=== PATIENT | female | born 1995 | race Caucasian/White ===

== ENCOUNTER 2020-03-20 21:38 | Emergency (ER) | payer OTHER, SELFPAY ==
[2020-03-20 23:59] VITALS: BP 122/74; PULSE 145; RESP 18; TEMP 39.4; O2SAT 97
[2020-03-21 01:39] VITALS: BP 150/73; PULSE 126; RESP 18; TEMP 38; O2SAT 97; BMI 34.3
[2020-03-21 02:23] VITALS: BP 111/70; PULSE 126; RESP 18; TEMP 37.6; O2SAT 96; BMI 34.3
--- NOTE | 2020-03-21 02:54 | ED_ITS ---
HPI - General Adult General Chief complaint: General Medical Stated complaint: covid like symptoms Time Seen by Provider: 03/21/20 02:35 Source: patient Mode of arrival: ambulatory History of Present Illness HPI narrative: This is a 25-year-old female who presents with few days of worsening body aches, sore throat, chills, but denies any GI symptoms or symptoms. Related Data Allergies Allergy/AdvReac Type Severity Reaction Status Date / Time No Known Allergies Allergy Verified 03/21/20 02:22 Review of Systems Review of Systems: Pertinent positives and negatives as stated in HPI 10 point review of systems is otherwise negative. PMFSH Past Medical History Source: nursing notes reviewed Medical History Asthma Social History Social History Advance Directives: No Advance Directives Information Provided: No Physical Exam Vital Signs: Vital Signs: Last Vital Signs Temp 99.6 F 03/21/20 02:23 Pulse 126 H 03/21/20 02:23 Resp 18 03/21/20 02:23 BP 111/70 03/21/20 02:23 Pulse Ox 96 03/21/20 02:23 Body Mass Index 34.3 VITAL SIGNS: Reviewed. GENERAL: Well developed, well nourished, in no acute distress. HEAD: Normocephalic/atraumatic, EYES: PERRLA, EOMI intact without pain EARS: Ext canals without abnormality, TMs non-bulging and non-erythematous NOSE: Nares patent bilateral OROPHARYNX: no oral lesions noted, posterior pharynx clear and non-erythematous without noted tonsillar enlargement/erythema/exudates NECK: Supple, no adenopathy LUNGS: Normal breath sounds. No adventitious sounds or accessory muscle use. SpO2<96> CARDIOVASCULAR: Regular rate and rhythm without noted murmurs, no JVD or lower extremity edema. ABDOMEN: Soft, non-tender, non-distended with bowel sounds. No rigidity. No guarding. No palpable masses or hernias noted NEUROLOGIC: Alert and oriented x 4. Course Course Course Narrative: This is a 25-year-old female with history and clinical presentation consistent with positive COVID exposure from her brother just prior to and now presenting with viral symptoms and given temperature as well as tachycardia suspect that patient in fact has COVID-19 which was confirmed by testing. Patient was informed of all results and discharged with instructions to self quarantine as per [place] state guidelines. Patient is neither hypoxic or tachypneic. Medical Decision Making Lab Data Labs: Lab Results 03/21/20 Range/Units 03:18 Coronavirus (PCR) POSITIVE A (Negative) Influenza Type A (PCR) NEGATIVE (Negative) Influenza Type B (PCR) NEGATIVE (Negative) RSV RNA Qual (PCR) NEGATIVE (Negative) Discharge Plan Discharge Clinical Impression: Close exposure to COVID-19 virus, Lab test positive for detection of COVID-19 virus Patient Disposition: Home, Self-Care Instructions: COVID-19 (Coronavirus Disease 2019) (ED) Additional Instructions: 1. Tylenol 1000 mg, orally, every 6 hours as needed for temperatures greater than 100.4, body aches, headaches. Do not exceed 4000 mg within 24 hours. 2. Ibuprofen 400 mg, orally with milk or food, every 6 hours as needed for temperatures greater than 100.4, body aches, headaches. You may take this in combination with the Tylenol for increased affect. 3. Continue stay well hydrated with water. 4. You must self quarantine as per state [facility] guidelines for COVID- 19 positive testing. Please does not hesitate to return to the emergency department if you develop significant worsening of shortness of breath. Referrals: Physician,Unknown [Primary Care Provider] - 2 days
[2020-03-21] MEDS: Acetaminophen 325 MG TABLET 975 MG PO (03:19)
[2020-03-21 04:07] LABS: Influenza A PCR NEGATIVE (Negative); Influenza B PCR NEGATIVE (Negative); Resp Syncy Virus RNA Qual PCR NEGATIVE (Negative)
[2020-03-21 04:11] LABS: SARS COV2 PCR INHOUSE POSITIVE (Negative)
[2020-03-21 04:25] VITALS: BP 112/59; PULSE 116; RESP 16; TEMP 37.4; O2SAT 97
== END 2020-03-21 04:44 | disposition home or self-care (01) ==
PROVIDERS: Emergency Provider Student in an Organized Health Care Education/Training Program
DX: U07.1 COVID-19 (principal); J45.909 Unspecified asthma, uncomplicated
CPT/HCPCS: 0241U; 36415; 99283

== ENCOUNTER 2021-12-03 21:56 | Emergency (ER) | payer OTHER, SELFPAY ==
--- NOTE | ~2021-12-03 | XR_ITS ---
EXAMINATION: XR CHEST CLINICAL INFORMATION: Shortness of breath COMPARISON: None TECHNIQUE: Frontal view of the chest was obtained. FINDINGS: No significant abnormality is noted involving the heart, lungs, mediastinum, bony thorax or soft tissues. XR/XR chest 1V IMPRESSION: Unremarkable examination.
--- NOTE | 2021-12-03 07:17 | ECG_ITS ---
Test Reason : SHORTNESS OF BREATH Blood Pressure : / mmHG Vent. Rate : 111 BPM Atrial Rate : 111 BPM P-R Int : 112 ms QRS Dur : 080 ms QT Int : 328 ms P-R-T Axes : 032 013 010 degrees QTc Int : 446 ms Sinus tachycardia Otherwise normal ECG No previous ECGs available Referred By: Valerie Adrian Electronically Signed By:KAILEY CORDERO
[2021-12-03 23:04] LABS: MANUAL DIFF FLAG NO
[2021-12-03 23:06] LABS: Basophils Percent Auto 0.3 % (0-2); Eosinophils Absolute Auto 0.1 X10*3/uL (0.0-0.4); Eosinophils Percent Auto 0.9 % (0-4); Hematocrit 39.8 % (37.0-47.0); Hemoglobin 13.4 g/dl (12.0-16.0); Imm Gran Abs Auto 0.07 X10*3/uL (0.00-0.03); Imm Gran Pct Auto 0.7 % (0.0-0.4); Lymphocytes Absolute Auto 3.7 X10*3/uL (1.2-4.9); Lymphocytes Percent Auto 36.9 % (20-40); Mean Corpuscular HGB Conc 33.7 g/dl (31.0-35.0); Mean Corpuscular Volume 83.1 fL (80.0-98.0); Mean Platelet Volume 9.1 fL (9.4-12.3); Monocytes Absolute Auto 0.4 X10*3/uL (0.1-1.2); Monocytes Percent Auto 4.1 % (2-11); Neutrophils Absolute Auto 5.8 x10*3/uL (2.0-8.3); Neutrophils Percent Auto 57.1 % (45-73); Platelet Count 246 X10*3/uL (160-400); Red Blood Count 4.79 X10*6/uL (4.20-5.50); Red Cell Distribution Width 12.6 % (11.0-16.0); White Blood Count 10.1 X10*3/uL (4.8-10.8)
[2021-12-03 23:14] LABS: COVID-19 Test Positive (Negative)
[2021-12-03 23:15] VITALS: BP 164/94; PULSE 107; RESP 18; TEMP 37.7; O2SAT 98; BMI 36.7
[2021-12-03 23:20] LABS: Anion Gap 16 (12-20); Blood Urea Nitrogen 16 mg/dL (9-16); Calcium 8.7 mg/dL (8.4-10.2); Carbon Dioxide 23 mmol/L (22-29); Chloride 105 mmol/L (96-108); Estimated Glomerular Filt Rate > 60; Glucose Random 98 mg/dL (60-115); Potassium 3.8 mmol/L (3.3-5.1); Sodium 140 mmol/L (135-145)
--- NOTE | 2021-12-04 01:18 | ED_ITS ---
HPI - General Adult General Chief complaint: General Medical Stated complaint: covid + ,sob,asthma Time Seen by Provider: 12/03/21 22:42 History of Present Illness HPI narrative: Patient is a 26-year-old female presents today with coughing upper respiratory symptoms ongoing for at least 1 week. Tested positive for COVID about a week ago. Continued to have coughing upper respiratory symptoms but no fever the current time. Patient is vaccinated, has a history of asthma but never been intubated. No GI symptoms. Related Data Allergies Allergy/AdvReac Type Severity Reaction Status Date / Time No Known Allergies Allergy Verified 03/21/20 02:22 Review of Systems Review of Systems: No fever no chills . Positive coughing upper respiratory symptoms Yes all other systems are reviewed and are negative [facility] Past Medical History Attestation statement: The following information was validated with the patient. Medical History Asthma Social History Social History Advance Directives: No Physical Exam ED Vital Signs: Vital Signs - 24 hr 12/03/21 23:15 Temperature 99.9 F Pulse Rate 107 H Respiratory Rate 18 Blood Pressure 164/94 H Pulse Oximetry 98 Oxygen Delivery Method Room Air BMI result Body Mass Index 36.7 Appearance: Alert. Oriented X3. No acute distress. Eyes: Pupils equal, round and reactive to light. ENT: Pharynx normal. Neck: Normal inspection. Neck supple. No lymph nodes noted. No crepitus CVS: Normal heart rate and rhythm. Pulses normal. Normal S1 and S2 Respiratory: No respiratory distress. Breath sounds normal. No Wheezing. No rales Abdomen: Soft and nontender. No rigidity. No distention. good BS x4 Skin: Skin warm and dry. Normal skin color. Normal skin turgor. Extremities: No lower extremity edema. Neurovascular intact to all extremities. No Lacerations. No Rash Neuro: Oriented X 3. No motor deficit. No sensory deficit. Moving all extermities. No slurred speech Medical Decision Making MDM Narrative Medical decision making narrative: Well-appearing no distress. O2 sat 90% on room air. Symptom greater than 1 week. Will discharge patient home Lab Data Result diagrams: 12/03/21 22:58 09/21/22 22:58 Labs: Lab Results 12/03/21 12/03/21 12/03/21 Range/Units 22:58 22:58 22:58 WBC 10.1 (4.8-10.8) X10*3/uL RBC 4.79 (4.20-5.50) X10*6/uL Hgb 13.4 (12.0-16.0) g/dl Hct 39.8 (37.0-47.0) % MCV 83.1 (80.0-98.0) fL MCH 28.0 (27.0-33.0) pg MCHC 33.7 (31.0-35.0) g/dl RDW 12.6 (11.0-16.0) % Plt Count 246 (160-400) X10*3/uL MPV 9.1 L (9.4-12.3) fL Immature Gran % (Auto) 0.7 H (0.0-0.4) % Neut % (Auto) 57.1 (45-73) % Lymph % (Auto) 36.9 (20-40) % [place] % (Auto) 4.1 (2-11) % Eos % (Auto) 0.9 (0-4) % Baso % (Auto) 0.3 (0-2) % Lymph # (Auto) 3.7 (1.2-4.9) X10*3/uL [place] # (Auto) 0.4 (0.1-1.2) X10*3/uL Eos # (Auto) 0.1 (0.0-0.4) X10*3/uL Baso # (Auto) 0.0 (0.0-0.2) X10*3/uL Abs Immat Gran (auto) 0.07 H (0.00-0.03) X10*3/uL Absolute Neuts (auto) 5.8 (2.0-8.3) x10*3/uL Absolute Nucleated RBC 0.000 (0.0-0.012) X10*3/uL Nucleated RBC % (auto) 0.0 (0.0-0.2) /100WBC Sodium 140 (135-145) mmol/L Potassium 3.8 (3.3-5.1) mmol/L Chloride 105 (96-108) mmol/L Carbon Dioxide 23 (22-29) mmol/L Anion Gap 16 (12-20) BUN 16 (9-16) mg/dL Creatinine 0.88 (0.5-1.4) mg/dL Estim Creat Clear Calc TNP Estimated GFR > 60 Random Glucose 98 (60-115) mg/dL Calcium 8.7 (8.4-10.2) mg/dL COVID-19 (RED) Positive A (Negative) COVID-19 Clin Com See Note Discharge Plan Discharge Clinical Impression: COVID-19 Patient Disposition: Home, Self-Care Instructions: COVID-19 (Coronavirus Disease 2019) (ED) Referrals: Physician,Unknown J [Primary Care Provider] - Stand Alone Forms: Work/School Release
[2021-12-04 01:21] VITALS: BP 112/74; PULSE 93; RESP 18; TEMP 36.7; O2SAT 99
--- NOTE | 2021-12-04 01:43 | PC.NURSE ---
Reviewed discharge instructions and pt verbalized understanding
== END 2021-12-04 01:44 | disposition home or self-care (01) ==
PROVIDERS: Emergency Medicine; Emergency Provider Emergency Medicine Emergency Medical Services
DX: U07.1 COVID-19 (principal); R06.02 Shortness of breath; Z79.899 Other long term (current) drug therapy
CPT/HCPCS: 71045; 80048; 85025; 87635; 93005; 99283

== ENCOUNTER 2022-10-21 06:31 | Emergency (ER) | payer OTHER, SELFPAY ==
--- NOTE | ~2022-10-21 | CT_ITS ---
EXAMINATION: CT ABDOMEN AND PELVIS WITH CONTRAST CLINICAL INFORMATION: Right flank pain radiating to the right lower quadrant. COMPARISON: None available. TECHNIQUE: Multidetector volumetric images were obtained from the superior aspect of the liver through the pubic symphysis following administration 85 mL of Omnipaque 350 intravenous contrast. Sagittal and coronal reformatted images were obtained on the technologist's workstation. Oral contrast: No This CT examination was performed using dose optimization techniques as appropriate, variously including the following: *Automated exposure control *Adjustment of mA and/or kV according to patient size (this includes techniques or standardized protocols for targeted exams where dose is matched to indication/reason for exam; i.e. extremities or head) *Use of iterative reconstruction technique DLP: 645 mGy-cm FINDINGS: LUNG BASES: The visualized lung bases are unremarkable. LIVER, GALLBLADDER, AND BILIARY TREE: Mild diffuse decreased hepatic attenuation without focal abnormality. No gallbladder/biliary abnormality. PANCREAS: Unremarkable. SPLEEN: Unremarkable. ADRENAL GLANDS: Unremarkable. KIDNEYS AND URETERS: The kidneys are normal in size, shape, and attenuation. No hydronephrosis, hydroureter, or calculi seen. No perinephric stranding. BLADDER: Unremarkable. GASTROINTESTINAL TRACT: Small hiatal hernia. The remainder of the stomach is unremarkable. ABDOMINAL WALL: No significant hernia is appreciated. LYMPH NODES: Mildly prominent perisplenic nodes. A renewals representative measures 0.9 cm in short axis densities image 25, series 3). VASCULAR: Unremarkable. PELVIC VISCERA: Unremarkable. OSSEOUS STRUCTURES: Unremarkable. CT/CT abdomen pelvis w IV con IMPRESSION: 1. No acute intra-abdominal/pelvic abnormality to explain the patient's pain. No nephrolithiasis or hydroureteronephrosis. 2. Mild hepatic steatosis. 3. Small hiatal hernia. 4. Mildly enlarged perisplenic lymph nodes are nonspecific. These are not pathologically enlarged and may be reactive to an unknown source. The spleen is at the upper limits of normal in size without other associated abnormality.
[2022-10-21 06:42] VITALS: BP 142/92; PULSE 94; RESP 18; TEMP 36.9; O2SAT 98; BMI 38.7
[2022-10-21 06:53] LABS: Hemoglobin 13.3 g/dl (12.0-16.0); Mean Corpuscular HGB Conc 32.4 g/dl (31.0-35.0); Mean Corpuscular Hemoglobin 26.9 pg (27.0-33.0); Red Blood Count 4.94 X10*6/uL (4.20-5.50); Red Cell Distribution Width 13.5 % (11.0-16.0); White Blood Count 7.4 X10*3/uL (4.8-10.8)
[2022-10-21 07:08] LABS: Alanine Aminotransferase 37 U/L (0-31); Albumin Level 4.1 g/dL (3.5-5.0); Alkaline Phosphatase 68 U/L (39-117); Anion Gap 10 (12-20); Aspartate Amino Transferase 26 U/L (5-31); Bilirubin Total 0.3 mg/dL (0.0-1.0); Blood Urea Nitrogen 9 mg/dL (9-16); Calcium 9.1 mg/dL (8.4-10.2); Carbon Dioxide 25 mmol/L (22-29); Chloride 107 mmol/L (96-108); Creatinine Clr Calc Pharmacy 121.2; Estimated Glomerular Filt Rate > 60; Glucose Random 102 mg/dL (60-115); Lipase 29 U/L (8-78); Potassium 4.4 mmol/L (3.3-5.1); Sodium 138 mmol/L (135-145); Total Protein 8.4 g/dL (6.5-8.0)
[2022-10-21 07:19] LABS: Mean Platelet Volume 12.5 fL (9.4-12.3); Platelet Count 81 X10*3/uL (160-400)
--- OUTSIDE RECORDS SUMMARY | 2022-10-21 07:20 | XMS_ITS | Continuity of Care Document ---
Author Name Unknown Organization [facility] Adult Address [address] [place] [address]- Care Team Providers Care Merchandising Team Lead Name Role Phone Chris PROCTOR, Catia Primary Care Physician [facility] Date(s): 05/26/21 - 06/25/21 [facility] Adult [address] [place] [address]- Allergies, Adverse Reactions, Alerts No Known Allergies Immunizations Given and Recorded Vaccine Date Status Refusal Reason influenza virus vaccine, inactivated 1 02/06/20 Gi merlyn influenza virus vaccine, inactivated 2 01/20/19 Gi merlyn tetanus/diphtheria/pertussis, acel(Tdap) 3 01/20/19 Given tetanus/diphtheria/pertussis, acel(Tdap) 09/28/08 Recorded Meningococcal Conjugate Vaccine 11/08/14 Recorded Meningococcal Conjugate Vaccine 09/28/08 Recorded Hepatitis A Pediatric Vaccine 11/01/13 Recorded Hepatitis A Pediatric Vaccine 10/09/10 Recorded Human Papillomavirus Vaccine 04/30/09 Recorded Human Papillomavirus Vaccine 12/12/08 Recorded Human Papillomavirus Vaccine 09/28/08 Recorded Varicella Virus Vaccine 09/20/07 Recorded Varicella Virus Vaccine 06/06/98 Recorded Poliovirus Vaccine, Inactivated 12/06/01 Recorded Poliovirus Vaccine, Inactivated 97 Recorded Poliovirus Vaccine, Inactivated 97 Recorded Poliovirus Vaccine, Inactivated 97 Recorded diphtheria/tetanus/pertussis, acel(DTaP) 12/06/01 Recorded diphtheria/tetanus/pertussis, acel(DTaP) 06/06/98 Recorded diphtheria/tetanus/pertussis, acel(DTaP) 97 Recorded diphtheria/tetanus/pertussis, acel(DTaP) 97 Recorded diphtheria/tetanus/pertussis, acel(DTaP) 97 Recorded Measles/Mumps/Rubella Virus Vaccine 06/06/98 Recor ded Measles/Mumps/Rubella Virus Vaccine 03/25/98 Recor ded Haemophilus B Conj Vaccine (oldterm) 06/06/98 Codey rded Haemophilus B Conj Vaccine (oldterm) 97 Codey rded Haemophilus B Conj Vaccine (oldterm) 97 Codey rded Haemophilus B Conj Vaccine (oldterm) 97 Codey rded hepatitis B pediatric vaccine 97 Recorded hepatitis B pediatric vaccine 97 Recorded hepatitis B pediatric vaccine 97 Recorded 1Result Comment: [facility]: [id number] 2Result Comment: [facility] 70464-903-52 3Result Comment: [facility] [id number] Medications Albuterol (Eqv-ProAir HFA) 90 mcg/inh inhalation aerosol 2 puffs, Inhalation, Every 6 hours, PRN Wheezing/Shortness of Breath, # 6.7 Gm, 0 Refills, Maintenance, 05/23/21 11:51:00 EST, [id number], Partial fill upon patient request if the prescription is for a schedule II opioid drug., 2 puffs Inhalat... Start Date: 05/23/21 Status: Ordered metroNIDAZOLE 0.75% topical gel 1 application, Topically, 2 times a day, # 45 Gm, 1 Refills, Maintenance, 05/23/21 11:50:00 EST, Gel, [id number], 1 application Topically 2 times a day, 150.6, cm, 05/23/21 11:21:00 EST, Height Start Date: 05/23/21 Status: Ordered Nexplanon 68 mg subcutaneous implant 1 each = 68 mg, Subcutaneous Infusion, Once, 0 Refills, Maintenance, 01/20/19 13:10:36 EST Start Date: 01/20/19 Status: Ordered Problem List Condition Effective Dates Status Health Status Inform ant Asthma(Confirmed) Active Depression(Confirmed) Active Obese class II(Confirmed) Active Rosacea(Confirmed) Active Social History Social History Type Response Smoking Status Never (less than 100 in lifetime) entered on: 01/20/19 Sex
--- OUTSIDE RECORDS SUMMARY | 2022-10-21 07:20 | XMS_ITS | Continuity of Care Document ---
Author Name Unknown Organization [facility] Adult Address [address] [place] [address]- Care Team Providers Care Presetter Operator Name Role Phone Catia Perez MD Primary Care Physician Encounter [facility] Date(s): 05/23/21 - 05/30/21 [facility] Adult [address] [place] [phone]- Encounter Diagnosis Well adult exam(Discharge Diagnosis) - 05/23/21 Obesity(Discharge Diagnosis) - 05/23/21 Asthma(Discharge Diagnosis) - 05/23/21 Depression(Discharge Diagnosis) - 05/23/21 Rosacea(Discharge Diagnosis) - 05/23/21 Diabetes mellitus screening(Discharge Diagnosis) - 05/23/21 Screening cholesterol level(Discharge Diagnosis) - 05/23/21 Attending Physician: Catia Perez MD Allergies, Adverse Reactions, Alerts No Known Allergies [...] B pediatric vaccine 97 Recorded 1Result Comment: [facility]: [id number] 2Result Comment: [facility] 50216-552-60 3Result Comment: [facility] [phone] Medications Albuterol (Eqv-ProAir HFA) 90 mcg/inh inhalation aerosol 2 puffs, Inhalation, Every 6 hours, PRN Wheezing/Shortness of Breath, # 6.7 Gm, 0 Refills, Maintenance, 05/23/21 11:51:00 EST, [facility]/pharmacy #[id number], Partial fill upon patient request if [...] Active Obese class II(Confirmed) Active Rosacea(Confirmed) Active Diagnosis Diagnosis Type Effective Dates Health Status Clinical Service Informant Well adult exam Discharge Diagnosis 05/23/21 Obesity Discharge Diagnosis 05/23/21 Asthma Discharge Diagnosis 05/23/21 Depression Discharge Diagnosis 05/23/21 Rosacea Discharge Diagnosis 05/23/21 Diabetes mellitus screening Discharge Diagnosis 05/23/21 Screening cholesterol level Discharge Diagnosis 05/23/21 Vital Signs Most recent to oldest [Reference Range]: 1 Height 150.6 cm (05/23/21 11:21 AM) Weight 85.9 kg (05/23/21 11:21 AM) Oxygen Saturation [94-100 %] 98 % (05/23/21 11:21 AM) Pulse Rate [55-90 bpm] 87 bpm (05/23/21 11:21 AM) Body Mass Index [18.5-24.99] 37.87 *>HHI* (05/23/21 11:21 AM) Blood Pressure [90-138/55-84 mm Hg] 110/ 66mm Hg (05/23/21 11:21 AM) Temperature [96.8-100.4 DegF] 98.4 DegF (05/23/21 11:21 AM) Mode of Delivery (Oxygen) Room air (05/23/21 11:21 AM) Blood pressure sites Arm, left (05/23/21 11:21 AM) Temperature Route Oral (05/23/21 11:21 AM) Social History Social History Type Response Smoking Status Never (less than 100 in lifetime) entered on: 01/20/19 Sex
--- OUTSIDE RECORDS SUMMARY | 2022-10-21 07:20 | XMS_ITS | Continuity of Care Document ---
Author Name Unknown Organization [facility] Adult Address [address] [place] [address]- Care Team Providers Care Pet Care Associate Name Role Phone Chris PROCTOR, Catia Primary Care Physician Encounter [facility] Date(s): 02/27/20 - 03/28/20 [facility] Adult [address] [place] [address]- Allergies, Adverse Reactions, Alerts Substance Reaction Severity Status NKA Active Immunizations Given and Recorded Vaccine Date Status [...] B pediatric vaccine 97 Recorded 1Result Comment: [facility]: [id number] 2Result Comment: [facility] 21201-992-71 3Result Comment: [facility] [id number] Medications metroNIDAZOLE 0.75% topical gel 1 application, Topically, 2 times a day, # 45 Gm, 1 Refills, Maintenance, 01/20/19 13:26:16 EST, Gel, 1 application Topically 2 times a day Start Date: 01/20/19 Status: Ordered Nexplanon 68 mg subcutaneous implant 1 each = 68 mg, Subcutaneous Infusion, Once, 0 Refills, Maintenance, 01/20/19 13:10:36 EST Start Date: 01/20/19 Status: Ordered Wellbutrin XL 150 mg/24 hours oral tablet, extended release 1 tablet = 150 mg, By Mouth, Every 24 hours, # 30 tablet, 1 Refills, Maintenance, 01/20/19 13:26:17EST, ER Tablet Start Date: 01/20/19 Status: Ordered Problem List Condition Effective Dates Status Health Status Inform ant Asthma(Confirmed) Active Rosacea(Confirmed) Active Social History Social History Type Response Smoking Status Never (less than 100 in lifetime) entered on: 01/20/19 Sex
--- OUTSIDE RECORDS SUMMARY | 2022-10-21 07:20 | XMS_ITS | Continuity of Care Document ---
Author Name Unknown Organization [facility] Adult Address [address] [place] [address]- Care Team Providers Care Restorative Aide Name Role Phone Kimberly VALADEZ, Bianca Primary Care Physician [facility] Date(s): 01/20/19 - 04/13/19 [facility] Adult [address] [place] [phone]- [facility] Attending Physician: Not on Staff, Attending MD Allergies, Adverse Reactions, Alerts Substance Reaction Severity Status NKA Active Immunizations Given and Recorded Vaccine Date Status Refusal Reason tetanus/diphtheria/pertussis, acel(Tdap) 1 01/20/19 Given tetanus/diphtheria/pertussis, acel(Tdap) 09/28/08 Recorded influenza virus vaccine, inactivated 2 01/20/19 Gi merlyn Meningococcal Conjugate Vaccine 11/08/14 Recorded Meningococcal Conjugate [...] B pediatric vaccine 97 Recorded 1Result Comment: [facility] [phone] 2Result Comment: [facility] [id number] Medications metroNIDAZOLE 0.75% topical gel 1 application, [...]
--- OUTSIDE RECORDS SUMMARY | 2022-10-21 07:20 | XMS_ITS | Continuity of Care Document ---
Author Name Unknown Organization [facility] Adult Address [address] [place] [address]- Care Team Providers Care Division Toll Wire Chief Name Role Phone Kimberly VALADEZ, Bianca Primary Care Physician Encounter [facility] Date(s): 03/14/19 - 03/24/19 [facility] Adult [address] [place] [address]- [facility] Attending Physician: Sim Perkins Admitting Physician: AdmSim rao Referring Physician: Admtr, ArNancy Allergies, Adverse Reactions, Alerts Substance Reaction Severity [...] Recorded 1Result Comment: [facility] [id number] 2Result Comment: [facility] 42771-450-28 Medications metroNIDAZOLE 0.75% topical gel 1 application, [...]
--- OUTSIDE RECORDS SUMMARY | 2022-10-21 07:20 | XMS_ITS | Continuity of Care Document ---
Author Name Unknown Organization [facility] Adult Address [address] [place] [address]- Care Team Providers Care Stock Turner Name Role Phone Chris PROCTOR, [place] Primary Care Physician [facility] Date(s): 06/19/22 - 07/19/22 [facility] Adult [address] [place] [id number] Allergies, Adverse Reactions, Alerts No Known Allergies Immunizations Given and Recorded Vaccine Date Status Refusal Reason influenza virus vaccine, inactivated 12/30/21 Codey rded influenza virus vaccine, inactivated 1 02/06/20 Gi merlyn influenza virus vaccine, inactivated 2 01/20/19 Gi merlyn influenza virus vaccine, inactivated 01/29/17 Codey rded influenza virus vaccine, inactivated 11/27/15 Codey rded influenza virus vaccine, inactivated 11/08/14 Codey rded SARS-CoV-2 (COVID-19) Ad26 vaccine 06/23/20 Given tetanus/diphtheria/pertussis, acel(Tdap) 3 01/20/19 Given tetanus/diphtheria/pertussis, acel(Tdap) [...] B pediatric vaccine 97 Recorded 1Result Comment: [facility]: 77144-554-94 2Result Comment: [facility] 53799-721-74 3Result Comment: [facility] [id number] Medications Albuterol (Eqv-ProAir HFA) 90 mcg/inh inhalation aerosol 2 puffs, Inhalation, Every 6 hours, PRN Wheezing/Shortness of Breath, # 6.7 Gm, 0 Refills, Maintenance, 05/23/21 11:51:00 EST, [facility]/pharmacy #[id number], Partial fill upon patient request if the prescription is for a schedule II opioid drug., 2 puffs Inhalat... Start Date: 05/23/21 Status: Ordered FLUoxetine (Eqv-Prozac) 20 mg oral tablet 1 tablet = 20 mg, By Mouth, Daily, # 30 tablet, 2 Refills, Maintenance, 06/10/22 8:54:00 EDT, Tablet, [id number], Partial fill upon patient request if the prescription is for a schedule II opioid drug., 150.6, cm, 06/10/22 8:10:00 EDT, Height Start Date: 06/10/22 Status: Ordered metroNIDAZOLE 0.75% topical gel 1 [...] Date: 01/20/19 Status: Ordered Problem List Condition Confirmation Course Effective Dates Status Health St [facility] Informant Asthma Confirmed Active Depression Confirmed Active Obese class II Confirmed Active Rosacea Confirmed Active Social History Social History Type Response Smoking Status Never (less than 100 in lifetime) entered on: 01/20/19 Sex Patient Care team information Care Team Personnel Name: Catia Perez MD Position: S Primary Care Physician Member Role: PCP [facility]: [facility] [address] [place] [address]- Care Team Related Persons Name: ALPHONSE BRIAN
--- OUTSIDE RECORDS SUMMARY | 2022-10-21 07:20 | XMS_ITS | Continuity of Care Document ---
Author Name Unknown Organization [facility] Adult Address [address] [place] [address]- Care Team Providers Care Belly Roller Name Role Phone Chris PROCTOR, Catia Primary Care Physician Encounter [facility] Date(s): 02/06/20 - 03/07/20 [facility] Adult [address] [place] [address]- Attending Physician: Sim Perkins Admitting Physician: AdmSim rao Referring Physician: AdmtrSim Allergies, Adverse Reactions, Alerts Substance Reaction Severity [...] rded Haemophilus B Conj Vaccine (oldterm) 97 Codye rded hepatitis B pediatric vaccine 97 Recorded hepatitis B pediatric vaccine 97 Recorded hepatitis B pediatric vaccine 97 Recorded 1Result Comment: [facility]: 11131-491-23 2Result Comment: [facility] [phone] 3Result Comment: [facility] 23963-382-85 Medications metroNIDAZOLE 0.75% topical gel 1 application, [...]
--- OUTSIDE RECORDS SUMMARY | 2022-10-21 07:20 | XMS_ITS | Continuity of Care Document ---
Author Name Unknown Organization [facility] Adult Address [address] [place] [address]- Care Team Providers Care Electric Well Logging Operator Name Role Phone Chris PROCTOR, [place] Primary Care Physician [facility] Date(s): 06/19/22 - 07/19/22 [facility] Adult [address] [place] [id number] Allergies, Adverse Reactions, Alerts No Known Allergies [...] B pediatric vaccine 97 Recorded 1Result Comment: [facility]: [id number] 2Result Comment: [facility] [phone] 3Result Comment: [facility] [id number] Medications Albuterol (Eqv-ProAir HFA) 90 mcg/inh inhalation aerosol 2 puffs, Inhalation, Every 6 hours, PRN Wheezing/Shortness of Breath, # 6.7 Gm, 0 Refills, Maintenance, 05/23/21 11:51:00 EST, [facility]/pharmacy #[id number], Partial fill upon patient request if [...] Care Physician Member Role: PCP [facility]: [facility] [place] [address]- Care Team Related Persons Name: ALPHONSE BRIAN
--- OUTSIDE RECORDS SUMMARY | 2022-10-21 07:21 | XMS_ITS | Continuity of Care Document ---
Author Name Unknown Organization [facility] Adult Address [address] [place] [address]- Care Team Providers Care Program Manager Slp Name Role Phone Chris PROCTOR, [place] Primary Care Physician [facility] Date(s): 07/13/22 - 08/12/22 [facility] Adult [address] [place], [place] [address] Allergies, Adverse Reactions, Alerts No Known [...] pediatric vaccine 97 Recorded 1Result Comment: [facility]: [phone] 2Result Comment: [facility] [phone] 3Result Comment: [facility] [id number] Medications Albuterol (Eqv-ProAir HFA) 90 mcg/inh inhalation aerosol 2 puffs, Inhalation, Every 6 hours, PRN Wheezing/Shortness of Breath, # 6.7 Gm, 0 Refills, Maintenance, 05/23/21 11:51:00 EST, [facility]/pharmacy #[id number], Partial fill upon patient request if [...] Personnel Name: Catia Perez MD Position: S Physician - Primary Care Member Role: PCP [facility]: [address] [place] [address]- Care Team Related Persons Name: ALPHONSE BRIAN
--- OUTSIDE RECORDS SUMMARY | 2022-10-21 07:21 | XMS_ITS | Continuity of Care Document ---
Author Name Unknown Organization [facility] Adult Address [address] [place] [address]- Care Team Providers Care Night Guard Name Role Phone Chris PROCTOR, Catia Primary Care Physician Encounter [facility] Date(s): 06/10/22 - 06/17/22 [facility] Adult [address] [place] [id number]- Encounter Diagnosis Well adult exam(Discharge Diagnosis) - 06/10/22 Depression(Discharge Diagnosis) - 06/10/22 Obese class II(Discharge Diagnosis) - 06/10/22 Rosacea(Discharge Diagnosis) - 06/10/22 Asthma(Discharge Diagnosis) - 06/10/22 Palpitations(Discharge Diagnosis) - 06/10/22 Hyperpigmented skin lesion(Discharge Diagnosis) - 06/10/22 Attending Physician: Chris PROCTOR, Catia Allergies, Adverse Reactions, Alerts No Known Allergies [...] B pediatric vaccine 97 Recorded 1Result Comment: [facility]: [id number] 2Result Comment: [facility] [id number] 3Result Comment: [facility] [id number] Medications Albuterol (Eqv-ProAir HFA) 90 mcg/inh inhalation aerosol 2 puffs, Inhalation, Every 6 hours, PRN Wheezing/Shortness of Breath, # 6.7 Gm, 0 Refills, Maintenance, 05/23/21 11:51:00 [facility], [facility]/pharmacy #[id number], Partial fill upon patient request if the prescription is for a schedule II opioid drug., 2 puffs Inhalat... Start Date: 05/23/21 Status: Ordered FLUoxetine (Eqv-Prozac) 20 mg oral tablet 1 tablet = 20 mg, By Mouth, Daily, # 30 tablet, 2 Refills, Maintenance, 06/10/22 8:54:00 EDT, Tablet, [facility]/pharmacy #[id number], Partial fill upon patient request if the prescription is for a schedule II opioid drug., 150.6, cm, 06/10/22 8:10:00 EDT, Height Start Date: 06/10/22 Status: Ordered metroNIDAZOLE 0.75% topical gel 1 application, Topically, 2 times a day, # 45 Gm, 1 Refills, Maintenance, 05/23/21 11:50:00 EST, Gel, [facility]/pharmacy #[id number], 1 application Topically 2 times a [...] class II Confirmed Active Rosacea Confirmed Active Diagnosis Diagnosis Type Effective Dates Health Status Clinical Service Informant Well adult exam Discharge Diagnosis 06/10/22 Depression Discharge Diagnosis 06/10/22 Obese class II Discharge Diagnosis 06/10/22 Rosacea Discharge Diagnosis 06/10/22 Asthma Discharge Diagnosis 06/10/22 Palpitations Discharge Diagnosis 06/10/22 Hyperpigmented skin lesion Discharge Diagnosis 06/10/22 Vital Signs Most recent to oldest [Reference Range]: 1 2 Height 150.6 cm (06/11/22 10:46 AM) 150.6 cm (06/10/22 8:10 AM) Weight 84.7 kg (06/11/22 10:46 AM) 84.7 kg (06/10/22 8:10 AM) Oxygen Saturation [94-100 %] 100 % (06/10/22 8:10 AM) Pulse Rate [55-90 bpm] 87 bpm (06/10/22 8:10 AM) Body Mass Index [18.5-24.99 kg/m2] 37.35 kg/m2 *>HHI* (06/10/22 8:10 AM) Blood Pressure [90-138/55-84 mm Hg] 126/ 86mm Hg (06/10/22 8:10 AM) Mode of Delivery (Oxygen) Room air (06/10/22 8:10 AM) Blood pressure sites Arm, right (06/10/22 8:10 AM) Weight Obtained Via Standing scale (06/10/22 8:10 AM) Social History Social History Type Response Smoking Status Never (less than 100 in lifetime) entered on: 01/20/19 Sex EKG study * Event Display: ECG 12-Lead Authored Date: Please click on pdf link to open report * Event Display: ECG 12-Lead Authored Date: Ventricular Rate: 93 BPM Atrial Rate: 93 BPM P-R Interval: 124 ms QRS Duration: 82 ms Q-T Interval: 354 ms QTC Calculation(Bazett): 440 ms P [place]: 27 degrees R [place]: 17 degrees T [place]: 33 degrees Normal sinus rhythm Normal ECG No previous ECGs available Confirmed by DONALD BERMUDEZ MD ([id number]) on 06/10/2022 4:11:36 PM [place]: DONALD BERMUDEZ MD Note * Zeinab Lincoln: PERFORM, SIGN, VERIFY Event Display: Patient Education/Instruction Authored Date: [id number] [facility] *[facility] [place] [facility] Clinical Summary Name JESSY TRACY Age 27 Years 1995 PCP Catia Perez MD PCP Visit Date 06/10/2022 08:08:00 Additional Instructions: Scheduled Appointments?? Future Appointments ?*Int??Behav??[facility] ?Phone:??--?Fax:??-- ?Appt. Date:??06/25/2022?11:00 AM ?Scheduled Provider:??Katherine Maier Follow-Up Instructions ?? With: Address: When: Catia Perez MD Within 3 months With: Address: When: Chris PROCTOR, Catia Within 1 year Diagnosis Depression, unspecified; Palpitations; Rosacea, unspecified; Encounter for general adult medical examination without abnormal findings; Disorder of pigmentation, unspecified; Unspecified asthma, uncomplicated; Body mass index [BMI] 35.0-35.9, adult Medications: Please continue your medications until treatment is completed or stopped by your provider. Discuss any questions related to medications with your provider. New Medications [facility]/pharmacy #[id number], [address], [place] [id number], [phone] Fluoxetine (FLUoxetine (Eqv-Prozac) 20 mg oral tablet) 1 tab(s) Oral Daily. Refills: 2. Next Dose: Medications to Continue with No Changes These medications were not printed or sent to your pharmacy Albuterol (Albuterol (Eqv-ProAir HFA) 90 mcg/inh inhalation aerosol) 2 puff(s) Inhalation every 6 hours as needed Wheezing/Shortness of Breath. Refills: 0. Next Dose: Etonogestrel (Nexplanon 68 mg subcutaneous implant) 1 Each Subcutaneous Infusion once. Next Dose: Metronidazole Topical (metroNIDAZOLE 0.75% topical gel) 1 eduar Topically twice a day. Refills: 1. Next Dose: Allergy Info:?? NKA Medications Given This Visit Future Orders ?TSH with T4 Reflex (Adults Only)? Order Date:06/10/22?- Complete on or after?06/10/22 ?Renal Panel? Order Date:06/10/22?- Complete on or after?06/10/22 ?CBC? Order Date:06/10/22?- Complete on or after?06/10/22 ?Holter Monitor 48 Hours? Order Date:06/10/22?- Complete on or after?06/10/22 Vital Signs Height 150.6 cm Weight 84.7 kg BMI 37.35 kg/m2 Blood Pressure 126 mm Hg/86 mm Hg Temperature Pulse Rate 87 bpm Respiratory Rate 02 Sat Mode of Delivery 100 %/Room air You can now view a summary of your hospital visit from the comfort of your home through a free online portal called [employer]. [employer] is a website that allows you to securely view your medical information including discharge summary, medications and follow-up visits. ??You can alsosend a secure electronic message to your doctor???s office to request appointments, renew medications or just ask a question. You can enroll at [email or web address] or register during your next office visit. Disclaimer:?? The information provided is of a general nature and is intended to be used in conjunction with the recommendations and advice of your health care practitioner. ??Every effort has been made to ensure that the information provided is accurate and complete at the time it is provided to you however, as your needs change, or, as new ??information becomes available, different or additional instructions may be required. If you have questions, please consult with your primary care provider or pharmacist, as appropriate. ??This information is not intended to serve as substitution for assessment and evaluation by a qualified health care provider. If you do not have a primary care provider, you may find a [facility] provider by calling [facility] at [phone]. For information about the plan of care including goals and instructions for your diagnosis, please see the patient education orders section of this document. Patient Education Materials?? The content of this educational material or handout may have been modified, supplemented, or adapted from its original content and format to support your individualized medical care. Patient Care team information Care Team Personnel Name: Catia Perez MD Position: [facility] Primary Care Physician Member Role: PCP Address: Address: [address] [place] [id number]- Care Team Related Persons Name: ALPHONSE BRIAN
--- OUTSIDE RECORDS SUMMARY | 2022-10-21 07:21 | XMS_ITS | Continuity of Care Document ---
Author Name Unknown Organization [facility] Adult Address [address] [place] [address]- Care Team Providers Care Pyrometer Mechanic Name Role Phone Chris PROCTOR, [place] Primary Care Physician Encounter [facility] Date(s): 06/19/22 - 07/19/22 [facility] Adult [address] [place] [id number] Allergies, Adverse Reactions, Alerts No Known [...] B pediatric vaccine 97 Recorded 1Result Comment: [facility]: [id number] 2Result Comment: [facility] [id number] 3Result Comment: [facility] [id number] Medications Albuterol (Eqv-ProAir HFA) 90 mcg/inh inhalation aerosol 2 puffs, Inhalation, Every 6 hours, PRN Wheezing/Shortness of Breath, # 6.7 Gm, 0 Refills, Maintenance, 05/23/21 11:51:00 EST, [facility]/pharmacy #[id number], Partial fill upon patient [...] Care Physician Member Role: PCP Address: [address] [place] [address]- Care Team Related Persons Name: ALPHONSE BRIAN
--- NOTE | 2022-10-21 07:25 | ED.ABDPAIN ---
HPI - Abdominal Pain General Chief Complaint: Abdominal Pain Stated Complaint: lower back/right sided pain Time Seen by Provider: 10/21/22 07:25 Source: patient, RN notes reviewed and old records reviewed Mode of arrival: ambulatory History of Present Illness HPI narrative: 37-year-old female with a past medical history of asthma presenting to ED complaining of right flank pain radiating to right lower quadrant since yesterday. Admits pain is constant with associated nausea. Denies fever/chills, vomiting, diarrhea, dysuria/hematuria, vaginal bleeding/discharge. MD elicited complaint: abdominal pain and flank pain Related Data Allergies Allergy/AdvReac Type Severity Reaction Status Date / Time No Known Allergies Allergy Verified 03/21/20 02:22 Review of Systems Review of Systems Constitutional: No Fever, No Chills, No Fatigue, No Malaise ENT/Mouth: No Hearing loss, No Ear Pain, No Nasal Congestion, No sore throat, No Rhinorrhea, No Swallowing Difficulty Eyes: No Eye Pain, No Swelling, No Vision Changes Cardiovascular: No Chest Pain, No SOB, No Edema, No Palpitations Respiratory: No Cough, No Sputum, No Wheezing, No Smoke Exposure, No Dyspnea Gastrointestinal: +Nausea, No Vomiting, No Diarrhea, No Constipation, + Abdominal pain Genitourinary: No irregular bleeding, No Dysuria, No Urinary Frequency, No Hematuria, No Urinary Incontinence/retention, No Urgency, + Flank Pain Musculoskeletal: No joint pain, No Myalgias, No Joint Swelling Skin: No Skin Lesions, No rash Neuro: No Weakness, No Headache Yes all other systems are reviewed and are negative Constitutional: Reports as per [facility] Past Medical History Attestation statement: The following information was validated with the patient. Source: old records reviewed Medical History Asthma Social History Social History Alcohol intake: never Smoked in Last 30 Days: No Use of substances other than those prescribed or required for medical reasons: No Advance Directives: No Advance Directives Information Provided: No Physical Exam ED Vital Signs: Vital Signs - 24 hr 10/21/22 06:42 10/21/22 07:32 Temperature 98.5 F 98.8 F Pulse Rate 94 104 H Respiratory Rate 18 18 Blood Pressure 142/92 H 130/83 Pulse Oximetry 98 97 Oxygen Delivery Method Room Air Room Air BMI result Body Mass Index 38.7 Const General: cooperative, healthy appearing and no acute distress Orientation/consciousness: patient oriented x3 Limitations: no limitations HENMT Head: Yes normal to inspection and Yes atraumatic Ears: hearing grossly normal bilaterally General nose exam: Normal external nose present Face and sinus: Yes normal facial exam Eyes General: appearance normal, both eyes and all related structures EOM: EOMs intact bilaterally Neck Neck: Yes normal visual inspection and Yes no meningeal signs Resp Effort & Inspection: normal respiratory effort and no respiratory distress Auscultation: clear to auscultation bilaterally Cardio Rate: regular rate Heart sounds: S1 normal heart sound present and S2 normal heart sound present GI Inspection: Yes normal to inspection Palpation (GI): Soft to palpation, Tenderness to palpation present (GI) in the RLQ and suprapubicly; with no rebound tenderness, no guarding and not rigid General: Yes no CVA tenderness Back/Spine/Pelvis Back: no CVA tenderness Skin Rashes: no rashes Wounds: no wounds Neuro General: patient oriented x3, tone normal and no meningeal signs Gait exam (Neuro): Normal gait present Extrem General: Yes normal to inspection Course Course Course Narrative: -0938--no leukocytosis. HH stable. Platelets 81 > decreased from priors. Labs otherwise reassuring -UA and negative CT abdomen pelvis w IV con IMPRESSION: 1.? No acute intra-abdominal/pelvic abnormality to explain the patient's pain. No nephrolithiasis or hydroureteronephrosis. 2.? Mild hepatic steatosis. 3.? Small hiatal hernia. 4.? Mildly enlarged perisplenic lymph nodes are nonspecific. These are not pathologically enlarged and may be reactive to an unknown source. The spleen is at the upper limits of normal in size without other associated abnormality. > viral testing including Monospot added. -Monospot, COVID and influenza negative. Rapid strep negative Results discussed with patient including worrisome signs and symptoms and strict return precautions, and when to return to the emergency department. They verbalized understanding and feel safe for discharge at this time. Medical Decision Making Medical Decision Making MDM Narrative: 37-year-old female with a past medical history of asthma presenting to ED complaining of right flank pain radiating to right lower quadrant since yesterday. On exam vital signs stable, NAD, nontoxic appearing, abdomen soft with RLQ/suprapubic tenderness, no rebound or guarding, no CVAT. Concern for renal stone/pyelo vs appendicitis. Rule out UTI. Lower suspicion for cholecystitis/sizes, pancreatitis diverticulitis or ovarian torsion/cyst at this time plan: Labs, UA, , CT AP, IVF, pain control Please refer to course for remaining clinical decision making, interpretation of labs/imaging results, and discussions with consultants and/or family members. Differential Diagnosis Differential Diagnoses: The differential diagnosis associated with the presentation includes As above Admission/Observation Consideration of admission/observation: Escalation of care including admission/observation considered Lab Data MDM Lab Attestation statement: I reviewed the patient's lab results. 10/21/22 06:47 10/21/22 06:47 Labs: Lab Results 10/21/22 10/21/22 10/21/22 Range/Units 06:47 06:47 07:24 WBC 7.4 (4.8-10.8) X10*3/uL RBC 4.94 (4.20-5.50) X10*6/uL Hgb 13.3 (12.0-16.0) g/dl Hct 41.0 (37.0-47.0) % MCV 83.0 (80.0-98.0) fL MCH 26.9 L (27.0-33.0) pg MCHC 32.4 (31.0-35.0) g/dl RDW 13.5 (11.0-16.0) % Plt Count 81 L D (160-400) X10*3/uL MPV 12.5 H (9.4-12.3) fL Absolute Nucleated RBC 0.000 (0.0-0.012) X10*3/uL Nucleated RBC % (auto) 0.0 (0.0-0.2) /100WBC Sodium 138 (135-145) mmol/L Potassium 4.4 (3.3-5.1) mmol/L Chloride 107 (96-108) mmol/L Carbon Dioxide 25 (22-29) mmol/L Anion Gap 10 L (12-20) BUN 9 (9-16) mg/dL Creatinine 0.68 (0.5-1.4) mg/dL Estim Creat Clear Calc 121.2 Estimated GFR > 60 Random Glucose 102 (60-115) mg/dL Calcium 9.1 (8.4-10.2) mg/dL Magnesium 2.2 (1.6-2.6) mg/dL Total Bilirubin 0.3 (0.0-1.0) mg/dL AST 26 (5-31) U/L ALT 37 H (0-31) U/L Alkaline Phosphatase 68 (39-117) U/L Total Protein 8.4 H (6.5-8.0) g/dL Albumin 4.1 (3.5-5.0) g/dL Lipase 29 (8-78) U/L Urine Color Straw Urine Appearance Clear Urine pH 7.0 (5.0-9.0) Ur Specific [place] <= 1.005 (1.005-1.025) Urine Protein Negative (Neg-Trace) mg/dL Urine Glucose (UA) Negative (Negative) mg/dL Urine Ketones Negative (Negative) mg/dL Urine Blood Trace (Negative) Urine Nitrite Negative (Negative) Ur Leukocyte Esterase Negative (Negative) Urine RBC 0-2 (0-2) /HPF Urine WBC 0-5 (0-5) /HPF Ur Squamous Epith Cells 0-2 (0-2) /HPF Urine Bacteria Trace (None Seen) Hyaline Casts 0-2 (0-2) /LPF Urine Test (NEGATIVE) COVID-19 (RED) (Negative) COVID-19 Clin Com Monoscreen (Negative) Influenza Type A (PHILIPPE) (Negative) Influenza Type B (PHILIPPE) (Negative) Influenza A & B Note S. pyogenes GrpA PHILIPPE (Negative) 10/21/22 10/21/22 10/21/22 Range/Units 07:24 09:49 09:49 WBC (4.8-10.8) X10*3/uL RBC (4.20-5.50) X10*6/uL Hgb (12.0-16.0) g/dl Hct (37.0-47.0) % MCV (80.0-98.0) fL MCH (27.0-33.0) pg MCHC (31.0-35.0) g/dl RDW (11.0-16.0) % Plt Count (160-400) X10*3/uL MPV (9.4-12.3) fL Absolute Nucleated RBC (0.0-0.012) X10*3/uL Nucleated RBC % (auto) (0.0-0.2) /100WBC Sodium (135-145) mmol/L Potassium (3.3-5.1) mmol/L Chloride (96-108) mmol/L Carbon Dioxide (22-29) mmol/L Anion Gap (12-20) BUN (9-16) mg/dL Creatinine (0.5-1.4) mg/dL Estim Creat Clear Calc Estimated GFR Random Glucose (60-115) mg/dL Calcium (8.4-10.2) mg/dL Magnesium (1.6-2.6) mg/dL Total Bilirubin (0.0-1.0) mg/dL AST (5-31) U/L ALT (0-31) U/L Alkaline Phosphatase (39-117) U/L Total Protein (6.5-8.0) g/dL Albumin (3.5-5.0) g/dL Lipase (8-78) U/L Urine Color Urine Appearance Urine pH (5.0-9.0) Ur Specific [place] (1.005-1.025) Urine Protein (Neg-Trace) mg/dL Urine Glucose (UA) (Negative) mg/dL Urine Ketones (Negative) mg/dL Urine Blood (Negative) Urine Nitrite (Negative) Ur Leukocyte Esterase (Negative) Urine RBC (0-2) /HPF Urine WBC (0-5) /HPF Ur Squamous Epith Cells (0-2) /HPF Urine Bacteria (None Seen) Hyaline Casts (0-2) /LPF Urine Test NEGATIVE (NEGATIVE) COVID-19 (RED) (Negative) COVID-19 Clin Com Monoscreen (Negative) Influenza Type A (PHILIPPE) Negative (Negative) Influenza Type B (PHILIPPE) Negative (Negative) Influenza A & B Note See Note S. pyogenes GrpA PHILIPPE Negative (Negative) 10/21/22 10/21/22 Range/Units 09:49 10:06 WBC (4.8-10.8) X10*3/uL RBC (4.20-5.50) X10*6/uL Hgb (12.0-16.0) g/dl Hct (37.0-47.0) % MCV (80.0-98.0) fL MCH (27.0-33.0) pg MCHC (31.0-35.0) g/dl RDW (11.0-16.0) % Plt Count (160-400) X10*3/uL MPV (9.4-12.3) fL Absolute Nucleated RBC (0.0-0.012) X10*3/uL Nucleated RBC % (auto) (0.0-0.2) /100WBC Sodium (135-145) mmol/L Potassium (3.3-5.1) mmol/L Chloride (96-108) mmol/L Carbon Dioxide (22-29) mmol/L Anion Gap (12-20) BUN (9-16) mg/dL Creatinine (0.5-1.4) mg/dL Estim Creat Clear Calc Estimated GFR Random Glucose (60-115) mg/dL Calcium (8.4-10.2) mg/dL Magnesium (1.6-2.6) mg/dL Total Bilirubin (0.0-1.0) mg/dL AST (5-31) U/L ALT (0-31) U/L Alkaline Phosphatase (39-117) U/L Total Protein (6.5-8.0) g/dL Albumin (3.5-5.0) g/dL Lipase (8-78) U/L Urine Color Urine Appearance Urine pH (5.0-9.0) Ur Specific [place] (1.005-1.025) Urine Protein (Neg-Trace) mg/dL Urine Glucose (UA) (Negative) mg/dL Urine Ketones (Negative) mg/dL Urine Blood (Negative) Urine Nitrite (Negative) Ur Leukocyte Esterase (Negative) Urine RBC (0-2) /HPF Urine WBC (0-5) /HPF Ur Squamous Epith Cells (0-2) /HPF Urine Bacteria (None Seen) Hyaline Casts (0-2) /LPF Urine Test (NEGATIVE) COVID-19 (RED) Negative (Negative) COVID-19 Clin Com See Note Monoscreen Negative (Negative) Influenza Type A (PHILIPPE) (Negative) Influenza Type B (PHILIPPE) (Negative) Influenza A & B Note S. pyogenes GrpA PHILIPPE (Negative) Radiology Impression Discussion of test interpretation with radiology: I have reviewed the radiologist's reading. External Record Review External record reviewed: Inpatient record, Office record, Outpatient record, Prior outpatient labs, Prior outpatient radiology, Primary care record and Outside ED record Tests considered The following testing was considered but not selected: As above Prescription Management I considered prescription management with: Pain Medication and Antibiotic Medications Administered Discontinued Medications Generic Name Dose Route Start Last Admin Trade Name Rossq PRN Reason Stop Dose Admin Sodium Chloride 1,000 mls @ 999 mls/hr 10/21/22 07:30 10/21/22 09:55 Ns IV 10/21/22 08:30 Infused .Q1H1M TANNA Infusion Iohexol 85 ml 10/21/22 08:28 10/21/22 08:28 Iohexol 350 Mg/Ml 100 Ml Infus..Btl IV 10/21/22 08:29 85 ml ONCE ONE Administration Ketorolac Tromethamine 30 mg 10/21/22 07:31 10/21/22 07:47 Ketorolac Tromethamine 30 Mg/Ml Vial IM 10/21/22 07:32 30 mg ONCE ONE Administration Discharge Plan Discharge Clinical Impression: Abdominal pain, Splenomegaly Patient Disposition: Home, Self-Care Instructions: Abdominal Pain (ED) Additional Instructions: Your blood work was reassuring Your CT scan showed nonspecific inflamed lymph nodes around her spleen and your spleen is on the larger side, upper limits of normal which could be your normal you tested negative for mono Please close follow-up with your primary care doctor, in GI as needed If symptoms persist or worsen, you have constant or unremitting abdominal pain, fever/chills return to the emergency department Please avoid any contact sports until follow-up Ref[place] [facility] [place] [facility] [Provider Group] Physician,Unknown J [Primary Care Provider] - Stand Alone Forms: Work/School Release Interventions: ED Discharge Assessment Last Done: 10/21/22 12:14 Discharge Date/Time: 10/21/22 12:32
[2022-10-21 07:32] VITALS: BP 130/83; PULSE 104; RESP 18; TEMP 37.1; O2SAT 97
[2022-10-21] MEDS: 0.9 % Sodium Chloride 1,000 ML 999 ML IV (07:44)
[2022-10-21] MEDS: Ketorolac Tromethamine 30 MG/ML VIAL IM (07:47)
--- NOTE | 2022-10-21 07:49 | PC.NURSE ---
Alert and oriented. arrived from home complaining of 8/10 right sided abdominal pain that started last night. States only on right side, right flank, and right lower back. Denies pain with urination or blood in urine. Denies chest pain or headahce. Nausea without vomiting. States no hx of kidney stones or abdominal pain. IV fluids running per order.
[2022-10-21 07:59] LABS: UPreg QC Valid YES; Urine Pregnancy NEGATIVE (NEGATIVE)
[2022-10-21 08:12] LABS: Appearance Urine Clear; Color Urine Straw; Glucose Urine UA Negative (Negative); Leukocyte Esterase Urine Negative (Negative); Nitrite Urine Negative (Negative); Specific Gravity - Urine <= 1.005 (1.005-1.025); UMIC TRIGGER UACC YES; Urine Blood Trace (Negative); Urine Ketones Negative (Negative); Urine Protein Negative (Neg-Trace)
[2022-10-21 08:15] LABS: Bacteria Urine Trace (None Seen); Hyaline Casts Urine 0-2 /LPF (0-2); RBC Urine 0-2 /HPF (0-2); Squamous Epithelial Cell Urine 0-2 /HPF (0-2); WBC Urine 0-5 /HPF (0-5)
[2022-10-21 08:17] LABS: Magnesium 2.2 mg/dL (1.6-2.6)
[2022-10-21] MEDS: iohexoL 350 MG/ML 100 ML INFUS..BTL 85 ML IV (08:28)
[2022-10-21 10:13] LABS: IDNOW Serial# 08D9AD1C; Strep A Nucleic Acid Negative (Negative)
[2022-10-21 10:24] LABS: IDNOW Serial# 9DB6401D; Influenza A Negative (Negative); Influenza B2 Negative (Negative)
[2022-10-21 10:25] LABS: COVID-19 Test Negative (Negative); IDNOW Serial# BCCEAD1C
[2022-10-21 11:33] LABS: Monotest Negative (Negative)
--- NOTE | 2022-10-21 12:15 | PC.NURSE ---
Discharge instructions reviewed with patient who verbalized understanding
== END 2022-10-21 12:32 | disposition home or self-care (01) ==
PROVIDERS: Physician Assistant; Emergency Provider Student in an Organized Health Care Education/Training Program
DX: R16.1 Splenomegaly, not elsewhere classified (principal); R10.31 Right lower quadrant pain; R11.2 Nausea with vomiting, unspecified; Z20.822 Contact with and (suspected) exposure to COVID-19; Z20.828 Contact with and (suspected) exposure to other viral communicable diseases; Z79.899 Other long term (current) drug therapy
CPT/HCPCS: 36415; 74177; 80053; 81001; 81025; 83690; 83735; 85027; 86308; 87502; 87635; 87651; 96360; 96361; 96372; 99284; J1885; Q9967

== ENCOUNTER 2023-05-17 16:20 | Emergency (ER) | payer OTHER, SELFPAY ==
--- NOTE | 2023-05-17 | ECG_ITS ---
Test Reason : CHEST PAIN Blood Pressure : / mmHG Vent. Rate : 109 BPM Atrial Rate : 109 BPM P-R Int : 120 ms QRS Dur : 076 ms QT Int : 342 ms P-R-T Axes : 040 003 023 degrees QTc Int : 460 ms Sinus tachycardia Otherwise normal ECG When compared with ECG of 03-DEC-2021 22:25, No significant change was found Referred By: Generic ED Physician Electronically Signed By:Waqar Napier
--- NOTE | ~2023-05-17 | CT_ITS ---
EXAMINATION: CT ANGIOGRAM OF THE CHEST WITH AND WITHOUT CONTRAST (CT PULMONARY ANGIOGRAM FOR PE) CLINICAL INFORMATION: Reason for Exam cough, sob elevated dimer COMPARISON: Chest radiograph earlier today TECHNIQUE: Prior to contrast administration, noncontrast localization images were obtained. Subsequently, multidetector volumetric imaging was performed from the thoracic inlet to below the diaphragms following the administration of 65 mL Omnipaque 350 intravenous contrast. No contrast reaction reported Sagittal, coronal, and MIP oblique sagittal reformatted images were obtained on the CT workstation, uploaded to PACS, and reviewed. This CT examination was performed using dose optimization techniques as appropriate, variously including the following: *Automated exposure control *Adjustment of mA and/or kV according to patient size (this includes techniques or standardized protocols for targeted exams where dose is matched to indication/reason for exam; i.e. extremities or head) *Use of iterative reconstruction technique Total exam dose-length product 306 mGy-cm FINDINGS: QUALITY OF STUDY/CONTRAST BOLUS: Satisfactory. PULMONARY ARTERIES: No pulmonary emboli. THORACIC AORTA: No aneurysm. LUNG: No focal consolidation, nodules or masses. PLEURA: No pleural effusion or pneumothorax. MEDIASTINUM: Normal heart size. No pericardial effusion. No hilar or mediastinal lymphadenopathy. No evidence of septal bowing or right heart strain. CORONARY ARTERY CALCIFICATION: None visualized on this study. CHEST WALL/AXILLA: No axillary or internal mammary lymphadenopathy. OSSEOUS STRUCTURES: No acute or suspicious osseous abnormality. UPPER ABDOMEN: Spleen is mildly enlarged at 12.2 cm. No reflux of contrast into the hepatic veins to suggest elevated right heart pressures. CT/CT angio chest PE protocol IMPRESSION: 1. No evidence of pulmonary emboli. 2. Mild splenomegaly. VTE: negative.
--- NOTE | ~2023-05-17 | US_ITS ---
EXAMINATION: US VENOUS ULTRASOUND WITH DOPPLER LOWER EXTREMITY, BILATERAL CLINICAL INFORMATION: Bilateral lower extremity pain COMPARISON: None available. TECHNIQUE: Ultrasound of the deep veins is performed from the hip to the calf with compression sonography and color and pulse Doppler assessment. Spectral analysis with color-flow imaging is performed. FINDINGS: RIGHT: There is normal venous compression and respiratory variation and augmented flow. The visualized common femoral vein, superficial femoral vein, profunda femoral vein, popliteal vein, and the trifurcation region shows no evidence of deep venous thrombosis. There is no significant popliteal fossa cyst. LEFT: There is normal venous compression and respiratory variation and augmented flow. The visualized common femoral vein, superficial femoral vein, profunda femoral vein, popliteal vein, and the trifurcation region shows no evidence of deep venous thrombosis. There is no significant popliteal fossa cyst. If the patient's symptoms persist, followup ultrasound in 5 days 7 days might be of value to exclude proximal propagation from a non-visualized calf vein. US/US venous duplex LE BI IMPRESSION: No DVT demonstrated in either lower extremity.
--- NOTE | ~2023-05-17 | XR_ITS ---
EXAMINATION: XR CHEST CLINICAL INFORMATION: Chest pain. COMPARISON: Chest radiograph dated 12/03/2021. TECHNIQUE: 2 views of the chest were obtained. FINDINGS: The trachea is in normal anatomic position. Heart size is normal. Both lungs are clear. There is no pleural effusion or pneumothorax. No acute osseous abnormality. XR/XR chest 2V IMPRESSION: Stable appearance of the heart and lungs. No active disease.
[2023-05-17 16:51] VITALS: BP 149/99; PULSE 108; RESP 18; TEMP 36.8; O2SAT 98; BMI 38.8
--- NOTE | 2023-05-17 16:52 | ED_ITS ---
HPI - General Adult General Chief complaint: Chest Pain Stated complaint: chest pain coughed up a blood clot Time Seen by Provider: 05/17/23 21:12 Source: patient Mode of arrival: ambulatory Limitations: no limitations History of Present Illness HPI narrative: Patient is a 28-year-old female who presents to the emergency department for evaluation of blood-tinged sputum. She reports that she awoke from her sleep last night at 03:00 with a coughing spell she felt like she had a chunk of phlegm that needed to come out. However when she looked she noticed it was a small streak of blood. She has had no further hemoptysis. Throughout the day she developed pain to the left side of her chest and continued intermittent coughing. She does report that over the past year she has experienced multiple symptoms including myalgias, arthralgias, facial rash, thrombocytopenia and is currently being worked up outpatient with [facility] Hematology/rheumatology for possible ?blood clots or lupus?. Related Data Allergies Allergy/AdvReac Type Severity Reaction Status Date / Time No Known Allergies Allergy Verified 05/17/23 16:51 Review of Systems 2 Review of Systems: Yes all other systems are reviewed and are negative [facility] Past Medical History Attestation statement: The following information was validated with the patient. Source: old records reviewed Medical History Asthma Social History Social History Alcohol intake: never Smoked in Last 30 Days: No Use of substances other than those prescribed or required for medical reasons: No Advance Directives: No Advance Directives Information Provided: No Patient : No Physical Exam ED Vital Signs: Vital Signs - 24 hr 05/17/23 16:51 05/17/23 19:45 05/17/23 21:40 Temperature 98.2 F 97.0 F 97.7 F Pulse Rate 108 H 86 94 Respiratory Rate 18 18 20 Blood Pressure 149/99 H 146/87 H 133/91 H Pulse Oximetry 98 98 99 Oxygen Delivery Method Room Air Room Air Room Air BMI result Body Mass Index 38.8 Appearance: Alert.?Oriented to person, place and time. No acute distress.?Normal affect. Eyes: Pupils equal, round and reactive to light.? ENT: Pharynx normal.?? Neck: Normal inspection.? Neck supple.?? CVS: Heart sounds normal. Normal heart rate and rhythm.? Pulses normal.?? Respiratory: No respiratory distress.? Lung sounds clear to auscultation bilaterally?? Abdomen: Soft and non-tender. Normoactive bowel sounds. Skin: Skin warm and dry.? Normal skin color.? Normal skin turgor.?? Extremities: No lower extremity edema.? No calf ttp? Neuro: Moves all extremities spontaneously. Sensation intact bilaterally. CN II- XII intact. No focal neuro deficits. Ambulates with normal steady gait. Course Course Course Narrative: RME 16:52PM - 28-year-old female who is currently being worked up for possible lupus vs blood clots due to she has been having weird symptoms. Although patient reports that Wednesday night at 03:00 she was woken up out of her sleep and started coughing and had a streak of blood come out. She reports since then she has been having left-sided chest pain. She called her PCP and they were concerned that she should come here for further evaluation treatment. Otherwise she reports she has not had any additional hemoptysis. She reports she feels like her bilateral legs are swollen as well. She reports multiple joint pains Plan: Labs, chest x-ray and EKG will be ordered at this time. Patient will be sent back to the waiting room to be evaluated the ED. Medications Administered Discontinued Medications Generic Name Dose Route Start Last Admin Trade Name Freq PRN Reason Stop Dose Admin Iohexol 65 ml 05/17/23 21:42 05/17/23 21:42 Iohexol 350 Mg/Ml 100 Ml Infus..Btl IV 05/17/23 21:43 65 ml ONCE ONE Administration Medical Decision Making Medical Decision Making [facility] Narrative: Patient is a 28-year-old female who presents emergency department for evaluation of blood-tinged sputum as per HPI. At the time my examination she appears overall well, nontoxic, afebrile. No tachypnea or hypoxia. Presented initially mildly tachycardic. Her examination is benign. No lower extremity edema, erythema or warmth, 2+ DP/PT pulse bilaterally without calf tenderness upon palpation. Reviewed labs obtained prior to my assumption of care; no leukocytosis, no anemia, chronic thrombocytopenia platelet count actually improved when compared to prior, very mildly elevated AST ALT otherwise overall unremarkable CMP. High sensitive troponin is below detectable limits, EKG revealing a sinus tachycardia with ventricular rate of 109, QTC 460, no ST elevation, ST depression, no acute ischemic abnormalities, do not suspect ACS at this time induration symptoms. Chest x-ray is without acute pathology. Duplex ultrasound of the bilateral lower extremities does not reveal any evidence of DVT she was endorsing subjective swelling to the bilateral lower extremities though I do not appreciate this on examination. D-dimer was obtained which was mildly elevated at [address] angio of the chest was obtained to evaluate for pulmonary embolism __. Differential Diagnosis Differential Diagnoses: The differential diagnosis associated with the presentation includes (As noted above) Admission/Observation Consideration of admission/observation: Escalation of care including admission/observation considered (See narrative above) Lab Data MDM Lab Attestation statement: I reviewed the patient's lab results. (See narrative above) 05/17/23 17:52 05/17/23 17:52 Labs: Lab Results 05/17/23 Range/Units 17:52 WBC 9.8 (4.8-10.8) X10*3/uL RBC 4.99 (4.20-5.50) X10*6/uL Hgb 13.3 (12.0-16.0) g/dl Hct 40.3 (37.0-47.0) % MCV 80.8 (80.0-98.0) fL MCH 26.7 L (27.0-33.0) pg MCHC 33.0 (31.0-35.0) g/dl RDW 13.3 (11.0-16.0) % Plt Count 120 L D (160-400) X10*3/uL MPV 12.5 H (9.4-12.3) fL Immature Gran % (Auto) 0.5 H (0.0-0.4) % Neut % (Auto) 59.1 (45-73) % Lymph % (Auto) 35.1 (20-40) % [place] % (Auto) 4.4 (2-11) % Eos % (Auto) 0.5 (0-4) % Baso % (Auto) 0.4 (0-2) % Lymph # (Auto) 3.4 (1.2-4.9) X10*3/uL [place] # (Auto) 0.4 (0.1-1.2) X10*3/uL Eos # (Auto) 0.1 (0.0-0.4) X10*3/uL Baso # (Auto) 0.0 (0.0-0.2) X10*3/uL Abs Immat Gran (auto) 0.05 H (0.00-0.03) X10*3/uL Absolute Neuts (auto) 5.8 (2.0-8.3) x10*3/uL Absolute Nucleated RBC 0.000 (0.0-0.012) X10*3/uL Nucleated RBC % (auto) 0.0 (0.0-0.2) /100WBC D-Dimer High Sensitivty 294 NG/ML Sodium 139 (135-145) mmol/L Potassium 3.5 (3.3-5.1) mmol/L Chloride 106 (96-108) mmol/L Carbon Dioxide 28 (22-29) mmol/L Anion Gap 9 L (12-20) BUN 13 (9-16) mg/dL Creatinine 0.77 (0.5-1.4) mg/dL Estim Creat Clear Calc 106.2 Estimated GFR > 60 Random Glucose 88 (60-115) mg/dL Calcium 8.7 (8.4-10.2) mg/dL Magnesium 2.1 (1.6-2.6) mg/dL Total Bilirubin 0.3 (0.0-1.0) mg/dL AST 35 H (5-31) U/L ALT 40 H (0-31) U/L Alkaline Phosphatase 73 (39-117) U/L Troponin I High Sens < 2.7 (<3.5-17.0) ng/L Total Protein 8.4 H (6.5-8.0) g/dL Albumin 4.1 (3.5-5.0) g/dL Beta HCG, Quant < 2 mIU/mL Independent Interpretation I performed an independent interpretation of an: EKG (See narrative above), Plain X-Ray (No pneumonia or pleural effusion) and Ultrasound (No DVT) Radiology Impression Discussion of test interpretation with radiology: I have reviewed the radiologist's reading. Radiologist Impression: XR/XR chest 2V IMPRESSION: Stable appearance of the heart and lungs. No active disease. US/US venous duplex LE BI IMPRESSION: No DVT demonstrated in either lower extremity. CT/CT angio chest PE protocol IMPRESSION: 1. No evidence of pulmonary emboli. 2. Mild splenomegaly. VTE: negative. Independent Historian Clinical information obtained from an independent historian. History obtained from or confirmed by: Parent (Present who confirms history) External Record Review External record reviewed: Outpatient record Prescription Management I considered prescription management with: Pain Medication (Acetaminophen) Critical Care Time Critical Care Time Critical Care Time: Yes Total Critical Care Time: 45 Attestation: I personally attest to this critical care time spent taking care of the patient exclusive of all other billable procedures was approximately 40 minutes including initial evaluation of patient, ordering tests, x-ray interpretation, EKG interpretation, medical consultation, documentation, re-evaluation. Discharge Plan Discharge Clinical Impression: Chest pain Patient Disposition: Home, Self-Care Instructions: Chest Pain (ED) Additional Instructions: As discussed, your blood work today is overall reassuring. Your platelet counts have actually improved when compared to prior levels. Your liver tests are very mildly elevated. We checked cardiac enzymes which can be elevated during times of a heart attack these were however normal. The EKG does not show any concerning findings. A CT scan of your chest was obtained to check for a blood clot in the lungs and this was negative. As discussed, it is recommended that you follow-up outpatient with your primary care provider and your specialist. You may return back to the emergency department with any new or worsening symptoms or concerns. You can take Tylenol 500 mg, 2 tablets (1,000mg) every 4-6 hours as needed for pain, but not to exceed 3 doses daily (3,000mg).? Referrals: Catia Hamilton MD [Primary Care Provider] -
[2023-05-17 17:56] LABS: MANUAL DIFF FLAG NO
[2023-05-17 18:06] LABS: D Dimer High Sensitivity 294 NG/ML
[2023-05-17 18:11] LABS: Basophils Percent Auto 0.4 % (0-2); Eosinophils Absolute Auto 0.1 X10*3/uL (0.0-0.4); Eosinophils Percent Auto 0.5 % (0-4); Hematocrit 40.3 % (37.0-47.0); Hemoglobin 13.3 g/dl (12.0-16.0); Imm Gran Abs Auto 0.05 X10*3/uL (0.00-0.03); Imm Gran Pct Auto 0.5 % (0.0-0.4); Lymphocytes Absolute Auto 3.4 X10*3/uL (1.2-4.9); Lymphocytes Percent Auto 35.1 % (20-40); Mean Corpuscular Hemoglobin 26.7 pg (27.0-33.0); Mean Corpuscular Volume 80.8 fL (80.0-98.0); Mean Platelet Volume 12.5 fL (9.4-12.3); Monocytes Absolute Auto 0.4 X10*3/uL (0.1-1.2); Monocytes Percent Auto 4.4 % (2-11); Neutrophils Absolute Auto 5.8 x10*3/uL (2.0-8.3); Neutrophils Percent Auto 59.1 % (45-73); Platelet Count 120 X10*3/uL (160-400); Red Blood Count 4.99 X10*6/uL (4.20-5.50); Red Cell Distribution Width 13.3 % (11.0-16.0); White Blood Count 9.8 X10*3/uL (4.8-10.8)
[2023-05-17 18:18] LABS: Alanine Aminotransferase 40 U/L (0-31); Albumin Level 4.1 g/dL (3.5-5.0); Alkaline Phosphatase 73 U/L (39-117); Anion Gap 9 (12-20); Aspartate Amino Transferase 35 U/L (5-31); Bilirubin Total 0.3 mg/dL (0.0-1.0); Blood Urea Nitrogen 13 mg/dL (9-16); Calcium 8.7 mg/dL (8.4-10.2); Carbon Dioxide 28 mmol/L (22-29); Chloride 106 mmol/L (96-108); Creatinine Clr Calc Pharmacy 106.2; Estimated Glomerular Filt Rate > 60; Glucose Random 88 mg/dL (60-115); Magnesium 2.1 mg/dL (1.6-2.6); Potassium 3.5 mmol/L (3.3-5.1); Sodium 139 mmol/L (135-145); Total Protein 8.4 g/dL (6.5-8.0)
[2023-05-17 18:22] LABS: HCG Quantitative < 2 mIU/mL; Troponin-I High Sensitivity < 2.7 ng/L (<3.5-17.0)
[2023-05-17 19:45] VITALS: BP 146/87; PULSE 86; RESP 18; TEMP 36.1; O2SAT 98
[2023-05-17 21:40] VITALS: BP 133/91; PULSE 94; RESP 20; TEMP 36.5; O2SAT 99
[2023-05-17] MEDS: iohexoL 350 MG/ML 100 ML INFUS..BTL 65 ML IV (21:42)
[2023-05-17] MEDS: 0.9 % Sodium Chloride 1,000 ML 999 ML IV (22:25)
== END 2023-05-17 23:22 | disposition home or self-care (01) ==
PROVIDERS: Physician Assistant Medical; Emergency Provider Emergency Medicine Emergency Medical Services; PCP Internal Medicine
DX: R07.9 Chest pain, unspecified (principal); M79.89 Other specified soft tissue disorders; J45.909 Unspecified asthma, uncomplicated
CPT/HCPCS: 36415; 71046; 71275; 80053; 83735; 84484; 84702; 85025; 85379; 93005; 93970; 96360; 99284; 99285; Q9967

== ENCOUNTER → 2023-05-17 16:35 | Outpatient (BNV) | payer OTHER, SELFPAY | PROVIDERS: Emergency Provider Emergency Medicine Emergency Medical Services; PCP Internal Medicine; Visit Provider Internal Medicine Cardiovascular Disease | DX: R00.0 Tachycardia, unspecified (principal) | CPT/HCPCS: 93010 ==

== ENCOUNTER → 2023-11-24 07:30 | Outpatient (BNVA) | payer OTHER, SELFPAY | PROVIDERS: PCP Internal Medicine; Visit Provider Internal Medicine | DX: Z13.89 Encounter for screening for other disorder (principal) | CPT/HCPCS: 99203 ==

== ENCOUNTER 2024-03-22 01:55 | Emergency (ER) | payer OTHER, SELFPAY ==
--- NOTE | ~2024-03-22 | XR_ITS ---
CLINICAL HISTORY: chest pain 2 view chest x-ray Comparison: Chest x-ray from 05/17/2023 Findings: Low lung volumes with mild atelectasis and/or pneumonitis. No lobar consolidation at this time. No pneumothorax or pleural effusion accounting for artifacts. Imaged mediastinum is unchanged. No definite osseous change in the [id number]. IMPRESSION: Mild bibasilar atelectasis and/or pneumonitis. This document has been electronically signed by: Malik Torres MD on 03/22/2024 03:00:23
--- NOTE | 2024-03-22 02:00 | ECG_ITS ---
Test Reason : CP Blood Pressure : */* mmHG Vent. Rate : 104 BPM Atrial Rate : 104 BPM P-R Int : 126 ms QRS Dur : 84 ms QT Int : 346 ms P-R-T Axes : 42 16 23 degrees QTcB Int : 454 ms Sinus tachycardia Otherwise normal ECG When compared with ECG of 17-May-2023 16:35, No significant change was found Referred By: Generic ED Physician Electronically Signed By: JEAN-PIERRE LOCO
[2024-03-22 02:08] VITALS: BP 154/104; PULSE 94; RESP 18; TEMP 36.4; O2SAT 99; BMI 38.8
[2024-03-22 02:10] LABS: MANUAL DIFF FLAG NO
[2024-03-22 02:12] LABS: Basophils Percent Auto 0.3 % (0-2); Eosinophils Absolute Auto 0.1 X10*3/uL (0.0-0.4); Eosinophils Percent Auto 0.9 % (0-4); Hemoglobin 12.3 g/dl (12.0-16.0); Imm Gran Abs Auto 0.05 X10*3/uL (0.00-0.03); Imm Gran Pct Auto 0.6 % (0.0-0.4); Lymphocytes Absolute Auto 3.8 X10*3/uL (1.2-4.9); Mean Corpuscular HGB Conc 33.2 g/dl (31.0-35.0); Mean Corpuscular Hemoglobin 26.6 pg (27.0-33.0); Mean Corpuscular Volume 80.1 fL (80.0-98.0); Mean Platelet Volume 10.7 fL (9.4-12.3); Monocytes Absolute Auto 0.5 X10*3/uL (0.1-1.2); Neutrophils Absolute Auto 4.6 x10*3/uL (2.0-8.3); Neutrophils Percent Auto 51.2 % (45-73); Platelet Count 139 X10*3/uL (160-400); Red Blood Count 4.62 X10*6/uL (4.20-5.50); Red Cell Distribution Width 13.1 % (11.0-16.0)
[2024-03-22 02:44] LABS: Anion Gap 11 (12-20); Blood Urea Nitrogen 14 mg/dL (9-16); Calcium 9.6 mg/dL (8.4-10.2); Carbon Dioxide 24 mmol/L (22-29); Chloride 105 mmol/L (96-108); Creatinine Clr Calc Pharmacy 111.1; Estimated Glomerular Filt Rate > 60; Glucose Random 97 mg/dL (60-115); Potassium 3.8 mmol/L (3.3-5.1); Sodium 136 mmol/L (135-145)
[2024-03-22 02:50] LABS: Troponin-I High Sensitivity < 2.7 ng/L (<3.5-17.0)
[2024-03-22 03:52] VITALS: BP 157/77; PULSE 88; RESP 16; TEMP 36.7; O2SAT 98
--- NOTE | 2024-03-22 04:11 | ED.CHESTPAIN ---
HPI - Chest Pain General Chief Complaint: Chest Pain Stated Complaint: CP Time Seen by Provider: 03/22/24 03:22 Source: patient Mode of arrival: ambulatory Limitations: no limitations History of Present Illness ED Provider: HPI narrative: Patient has no known significant medical history complaining of left-sided chest pain which is felt like warmth feeling which she woke up earlier today also had some palpitation no cough no shortness a breath no chest pain at this time chest pain lasted only for few minutes Related Data Allergies Allergy/AdvReac Type Severity Reaction Status Date / Time No Known Allergies Allergy Verified 03/22/24 02:13 Review of Systems Review of Systems: Yes all other systems are reviewed and are negative PMFSH Past Medical History Medical History Asthma Social History Social History Alcohol intake: never Smoked in Last 30 Days: No Use of substances other than those prescribed or required for medical reasons: No Advance Directives: No Advance Directives Information Provided: Yes Do you have a plan to hurt others: No Plan Patient : No Physical Exam Vital Signs: Vital Signs: Last Vital Signs Temp 98.0 F 03/22/24 04:25 Pulse 96 03/22/24 04:25 Resp 18 03/22/24 04:25 BP 124/87 03/22/24 04:25 Pulse Ox 97 03/22/24 04:25 O2 Del Method Room Air 03/22/24 04:25 BMI result Body Mass Index 38.8 Appearance: Alert. Oriented X3. No acute distress. Eyes: No pallor or icterus ENT: Pharynx normal. Oral Mucosa moist Neck: Normal inspection. Neck supple. CVS: Normal heart rate and rhythm. Pulses normal. Respiratory: No respiratory distress. Equal air entry bilateral, no wheezing/rales/rhonchi Abdomen: Soft and nontender. Bowel sounds are present, no mass palpable, Skin: Skin warm and dry. Normal skin color. Normal skin turgor. Extremities: No lower extremity edema. No calf tenderness Neuro: Oriented X 3. Medical Decision Making Medical Decision Making MDM Narrative: Patient with heart score of 0 no acute EKG changes cardiac enzymes negative atypical chest pain discharge patient home advised to follow up with PCP no cardiac arrhythmias noticed in the ER except for few PVCs patient advised to follow up for further management including Holter for palpitation Differential Diagnosis Differential Diagnoses: The differential diagnosis associated with the presentation includes Lab Data MDM Lab Attestation statement: I reviewed the patient's lab results. 03/22/24 02:06 03/22/24 02:06 Labs: Lab Results 03/22/24 Range/Units 02:06 WBC 9.0 (4.8-10.8) X10*3/uL RBC 4.62 (4.20-5.50) X10*6/uL Hgb 12.3 (12.0-16.0) g/dl Hct 37.0 (37.0-47.0) % MCV 80.1 (80.0-98.0) fL MCH 26.6 L (27.0-33.0) pg MCHC 33.2 (31.0-35.0) g/dl RDW 13.1 (11.0-16.0) % Plt Count 139 L (160-400) X10*3/uL MPV 10.7 (9.4-12.3) fL Immature Gran % (Auto) 0.6 H (0.0-0.4) % Neut % (Auto) 51.2 (45-73) % Lymph % (Auto) 42.0 H (20-40) % [place] % (Auto) 5.0 (2-11) % Eos % (Auto) 0.9 (0-4) % Baso % (Auto) 0.3 (0-2) % Lymph # (Auto) 3.8 (1.2-4.9) X10*3/uL [place] # (Auto) 0.5 (0.1-1.2) X10*3/uL Eos # (Auto) 0.1 (0.0-0.4) X10*3/uL Baso # (Auto) 0.0 (0.0-0.2) X10*3/uL Abs Immat Gran (auto) 0.05 H (0.00-0.03) X10*3/uL Absolute Neuts (auto) 4.6 (2.0-8.3) x10*3/uL Absolute Nucleated RBC 0.000 (0.0-0.012) X10*3/uL Nucleated RBC % (auto) 0.0 (0.0-0.2) /100WBC Sodium 136 (135-145) mmol/L Potassium 3.8 (3.3-5.1) mmol/L Chloride 105 (96-108) mmol/L Carbon Dioxide 24 (22-29) mmol/L Anion Gap 11 L (12-20) BUN 14 (9-16) mg/dL Creatinine 0.73 (0.5-1.4) mg/dL Estim Creat Clear Calc 111.1 Estimated GFR > 60 Random Glucose 97 (60-115) mg/dL Calcium 9.6 D (8.4-10.2) mg/dL Troponin I High Sens < 2.7 (<3.5-17.0) ng/L Independent Interpretation I performed an independent interpretation of an: EKG Interpretation: Sinus tachycardia with heart rate 104 beats per minute normal interval normal axis no acute ST-T changes no acute ischemia Discharge Plan Discharge Clinical Impression: Heart palpitations Patient Disposition: Home, Self-Care Instructions: Heart Palpitations (ED) Additional Instructions: Avoid caffeine drink Follow up with PCP/sales producer for further management including Holter monitoring Referrals: Dennys Espinoza MD [Physician] - 2 weeks Interventions: ED Discharge Assessment Last Done: 03/22/24 04:25 Discharge Date/Time: 03/22/24 04:28 Print Language: [place] Island[place]
[2024-03-22 04:21] VITALS: BP 124/87; PULSE 96; RESP 18; TEMP 36.7; O2SAT 97
[2024-03-22 04:25] VITALS: BP 124/87; PULSE 96; RESP 18; TEMP 36.7; O2SAT 97
== END 2024-03-22 04:28 | disposition home or self-care (01) ==
PROVIDERS: Emergency Provider Internal Medicine
DX: R07.89 Other chest pain (principal); R00.2 Palpitations; Z79.899 Other long term (current) drug therapy
CPT/HCPCS: 36415; 71046; 80048; 84484; 85025; 93005; 99284

== ENCOUNTER → 2024-03-22 02:00 | Outpatient (BNV) | payer OTHER, SELFPAY | PROVIDERS: Emergency Provider Internal Medicine; Visit Provider Internal Medicine | DX: R00.0 Tachycardia, unspecified (principal) | CPT/HCPCS: 93010 ==

== ENCOUNTER → 2024-03-22 02:15 | Outpatient (BNV) | payer OTHER, SELFPAY | PROVIDERS: Emergency Provider Internal Medicine; Visit Provider Radiology Neuroradiology | DX: R07.9 Chest pain, unspecified (principal) | CPT/HCPCS: 71046 ==

== ENCOUNTER 2024-12-14 09:21 | Outpatient (REF) | payer OTHER, SELFPAY ==
[2024-12-15 09:54] LABS: Chlamydia pneumoniae PCR Not Detected (Not Detect.); Coronavirus 229E PCR Not Detected (Not Detect.); Coronavirus HKU1 PCR Not Detected (Not Detect.); Coronavirus NL63 PCR Not Detected (Not Detect.); Coronavirus OC43 PCR Not Detected (Not Detect.); RSV PCR Not Detected (Not Detect.); Rhino/Enterovirus PCR Not Detected (Not Detect.)
[2024-12-15 09:57] LABS: Influenza A H1 PCR Not Detected (Not Detect.); Influenza A H1-2009 PCR Not Detected (Not Detect.); Influenza A H3 PCR Not Detected (Not Detect.); SARS-CoV-2 PCR Not Detected (Not Detect.)
== END 2024-12-14 09:22 | disposition home or self-care (01) ==
LOC: HO.LNP 09:21
PROVIDERS: Visit Provider Physician Assistant Medical
DX: J06.9 Acute upper respiratory infection, unspecified (principal); R11.2 Nausea with vomiting, unspecified; R19.7 Diarrhea, unspecified; J02.9 Acute pharyngitis, unspecified; R51.9 Headache, unspecified; R10.9 Unspecified abdominal pain
CPT/HCPCS: 87633; 87880

== ENCOUNTER 2024-12-14 09:21 | Outpatient (AMB) | payer OTHER, SELFPAY ==
[2024-12-14 09:23] VITALS: BP 118/82; PULSE 93; TEMP 36.9; O2SAT 100; BMI 38.8
--- NOTE | 2024-12-14 09:23 | AM.OFFWIN_ITS ---
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 - Diarrhea started approximately one wee k ago with associated nausea and not being able to keep anything down. - She has no new foods or medications th at could have caused the diarrhea. - Cervical lymphadenopathy was noted bef ore the diarrhea onset, with swelling in the neck area. - The patient reports a sore throat and a headache of near-migraine intensity. - She has been congested and has a cough . - She denies fever, chills, CP, SOB, abd pain, n/v/d, or melena. - She has no sick contacts. Physical Exam General: Cooperative, healthy appearing, comfortable, no acute distress and well developed Orientation: Patient oriented x3 Limitations: No limitations Head: Normal to inspection Ears: Hearing grossly normal bilaterally Nose: Normal external nose present Face and sinus: Normal facial exam Eyes: Appearance normal, both eyes and all related structures Neck: Tonsillar adenopathy noted bilaterally, right larger than the left. Respiratory: Normal respiratory effort and able to speak in complete sentences. Clear to auscultation bilaterally. No w/r/r noted. Cardiovascular: Regular rate and rhythm. Normal S1 and S2. No m/r/g noted. GI: Normal to inspection. Soft to palpation and nontender, non distended. No guarding or rebound tenderness noted. Negative CVA tenderness noted. Skin: No rashes or lesions noted Patient was informed and verbally consented to the use of an ambient scribe for clinic note documentation during this visit. [facility] Medical History Asthma Social History Alcohol intake: never Review of Systems Const All systems reviewed & are unremarkable except as noted in HPI and below Physical Exam Vital Signs: Last Vital Signs Temp 98.4 F 12/14/24 09:23 Pulse 93 12/14/24 09:23 BP 118/82 12/14/24 09:23 Pulse Ox 100 12/14/24 09:23 Oxygen Delivery Method Room Air 12/14/24 09:23 BMI result Body Mass Index 38.8 Assessment & Plan Assessment & Plan (1) URI (upper respiratory infection): Code(s): J06.9 - Acute upper respiratory infection, unspecified Qualifiers: URI type: unspecified viral URI Qualified Code(s): J06.9 - Acute upper respiratory infection, unspecified (2) Nausea vomiting and diarrhea: Code(s): R11.2 - Nausea with vomiting, unspecified; R19.7 - Diarrhea, unspecified Plan Most likely viral illness vs covid vs RSV vs flu vs gastroenteritis plan - will order a resp panel - tylenol or motrin as needed - zofran as needed for nausea - [place] BRAT diet as tolerated - drink lots of fluids - follow up with PCP Orders: Orders Resp Pathogen Panel - [facility] Today J06.9 - Acute upper respiratory infection, unspecified AMB Rapid Strep Screen Today J02.9 - Acute pharyngitis, unspecified Medications: New ondansetron 4 mg PO Q8H PRN 10 tabs 0RF nausea and vomiting Coding Level of Care Code Est Pt Level 3 (39422) Diagnoses Viral upper respiratory tract infection J06.9 URI type: unspecified viral URI Nausea vomiting and diarrhea R11.2; R19.7
--- OUTSIDE RECORDS SUMMARY | 2024-12-14 10:17 | XMS_ITS | Clinical Summary ---
Author Organization [facility] Address [address] [place] [phone] Phone Care Team Providers Care Wired Music Operator Name Role Phone Unavailable Primary Care Provider Unavailabl e Allergies No known active allergies Medications medroxyPROGESTER one 150 MG/ML injection INJECT 1 MILLILITER BY INTRAMUSCULAR ROUTE EVERY 3 MONTHS 3 10/29/19 17 Active albuterol HFA 108 (90 BASE) MCG/ACT inhalerIndicatio ns:Mild intermittent asthma without complication Inhale 2 puffs every 4 (four) hours as needed for wheezing or shortness of breath. 1 Units 01/30/20 17 Active Additional Information Patient not taking.Reported on 08/25/2017 Active Problems Problem Noted Date Diagnosed Date Mild intermittent asthma without complication Overweight 04/30/2009 Immunizations Immunization Administration Dates Next Due DTaP 5 12/06/2001, 9,1997,05/14,1997 HPV, Quadrivalent 04/30/2009,12/12/2008,09/29/19 09 Hep A, ped/adol 11/01/2013,10/09/2010 Hep B, ped/adol 1997,1997,1997 Hib (PRP-T) 06/06/1998, 8,1997,04/09 IPV 12/06/2001, 8,1997,04/09 Influenza, injectable, quadr ivalent, preservative free 01/29/2017,11/27/2015,11/08/2014 Influenza, injectable, trivalent 12/12/2008,01/13 MMR 06/06/1998,03/25/1998 Meningococcal Conj (Menactra) MCV4P 11/08/2014,0 09/28/2008 Tdap 09/28/2008 Varicella 09/20/2007,06/06/1998 Family History Medical History Relation Name Comments Diabetes Maternal Grandmother Diabetes Mother Vanna Hypertension Mother Vanna Relation Name Status Comments Brother Kayden Alive Brother: Alive and well Father Garrett Alive Maternal Grandfather Alive Maternal Grandmother Alive Mother Vanna Alive Other Family history of *Dental caries, Family history of Asthma, No family history of Strabismus, No family history of Developmental dislocation of hip, Family history of Sudden /[place] under age 55, No family history of Cancer, No family history of Obesity, No family history of Deafness, Family history of Diabetes mellitus, No family history of *CVA/Stroke, No family history of Seizure disorder, No family history of Migraines, No family history of *Sudden /[place] under 55, No family history of *Heart Disease Social History Tobacco Use Types Packs/Day Years Used Date Smoking Tobacco: Never Smokeless Tobacco: Never Comments:Never smoker Alcohol Use Standard Drinks/Week Comments No 0 (1 standard drink = 0.6 oz pur e alcohol) Comments No Sex and Gender Information Value Date Recorded Sex Assigned at Not on file Legal Sex Female 5:22 PM EDT Gender Identity Not on file Sexual Orientation Not on file Last Filed Vital Signs Vital Sign Reading Time Taken Comments Blood Pressure 114/68 08/25/2017 8:17 AM EDT Pulse 72 08/25/2017 8:17 AM EDT Temperature 37.7 C (99.8 F) 07/13/2017 2:57 PM EDT Respiratory Rate - - Oxygen Saturation - - Inhaled Oxygen Concentration - - Weight 76.2 kg (168 lb) 08/25/2017 8:17 AM EDT Height 149.9 cm (4' 11 ) 07/13/2017 2:57 PM EDT Body Mass Index 33.93 07/13/2017 2:57 PM EDT Plan of Treatment Health Maintenance Due Date Last Done Comments DTaP,Tdap,and Td Vaccines (7 - Td or Tdap) 09/28/2018 09/28/2008, 12/06/2001, 06/06/1998, Additional history exists Influenza Vaccines (#1) 2024 01/30/20 17, 11/27/2015, 11/08/2014, Additional history exists COVID-19 Vaccine ( season) 2024 Hepatitis B Vaccines Completed 1997, 1997, 1997 HIB Vaccines Completed 06/06/1998, 08/14, 1997, Additional history exists MMR Vaccines Completed 06/06/1998, 03/25/1998 IPV Vaccines Completed 12/06/2001, 08/14, 1997, Additional history exists Varicella Vaccines Completed 09/20/2007, 06/06/1998 HPV Vaccines Completed 04/30/2009, 11/15, 09/28/2008 Hepatitis A Vaccines Completed 11/01/2013, 10/10/19 11 Meningococcal Vaccine Completed 11/08/2014, 009 Men B Vaccine Aged Out No longer elig ible based on patient's age to complete this topic Pneumococcal Vaccine Aged Out No long er eligible based on patient's age to complete this topic Procedures * Due to [place] [employer] law, this organization might not be sharing sensitive test results. Procedure Name Priority Date/Time Associated Diagnosis Comments CHLAMYDIA AND GONORRHEA, AMPLIFIED Routine 04/23/2017 11:02 AM EST Surveillance of contraceptive injection from Last 3 Months or Most Recently Relevant to Health Maintenance Results * Due to [place] [employer] law, this organization might not be sharing sensitive test results. * Chlamydia and Gonorrhoea, Amplified (04/23/2017 11:02 AM EST) Chlamydia Trachomatis, DNA Probe NEGATIVE (NEG) [facility] Comment: No Chlamydia Trachomatis RNA detected in this patient's sample (REFERENCE RANGE/NORMAL VALUE: NOT DETECTED) Note: This test uses building maintenance custodian- mediated amplification method to detect rRNA from C. Trachomatis URINE GC AMP PROBE NEGATIVE (NEG) [facility] Comment: No Neisseria Gonorrhoeae RNA detected in this patient's sample (REFERENCE RANGE/NORMAL VALUE: NOT DETECTED) NOTE: This test uses building maintenance custodian-mediated amplification method to detect rRNA from N.Gonorrhoeae. A negative result does not preclude infection. In the case of a negative urine result, testing of an endocervical(female) or urethral (male) specimen is recommended if there is high clinical suspicion of infection. Due to very high sensitivity of Nucleic Acid Amplification Test, false positive results may occur. Therefore, specimen handling is extremely important. In patients in whom the disease is unlikely, additional sample for testing should be considered after an initial positive result. The performance characteristics of this test have not been evaluated in children. The Aptima Combo2 assay is not intended for the evaluation of suspected sexual abuse or for other medico-legal indications. The ordering provider should assess if the patient had consensual sex without risk of sexual abuse. Consult the [facility] if needed. Contact phone number . Therapeutic failure or success cannot be determined with the Aptima Combo2 assay since nucleic acid may persist following appropriate antimicrobial therapy. The Centers for Disease Control and Prevention (CDC) recommends confirmatory retesting using culture or a different nucleic acid amplification test when positive results occur, if indicated. Testing performed or reported by [facility], a Service of [facility], [address] [place] [id number] CLIA [id number] Jeremy Sun MD, PhD, Adjunct Instructor Of Women'S Studies Urine 04/23/2017 11:0 2 AM EST 04/23/2017 10:06 PM EST us Quin Zamora NP LAB MICROBIOLOGY - GENERAL ORDER JENNIFER Final Result [facility] from Last 3 Months or Most Recently Relevant to Health Maintenance
--- OUTSIDE RECORDS SUMMARY | 2024-12-14 10:17 | XMS_ITS | Encounter Summary ---
Author Organization [facility] Address [address] [place] [phone] Phone Care Team Providers Care Tassel Clipper Name Role Phone Unavailable Primary Care Provider Unavailabl e Encounter Details Date Type Department Care Team (Late st Contact Info) Description 08/14/2013 Documentation [facility] [place] [facility] [place] [address] Family Medicine, Physician [address] [place] [address] [phone] Social History Tobacco Use Types Packs/Day Years Used Date Smoking Tobacco: Never Assessed Comments Unknown Sex and Gender Information Value Date Recorded Sex Assigned at Not on file Legal Sex Female 5:22 PM EDT Gender Identity Not on file Sexual Orientation Not on file documented as of this encounter Plan of Treatment Not on file documented as of this encounter Visit Diagnoses Not on filedocumented in this encounter
--- OUTSIDE RECORDS SUMMARY | 2024-12-14 10:17 | XMS_ITS | Encounter Summary ---
Author Organization [facility] Address [address] [place] [address] Phone Care Team Providers Care Drivematic Machine Operator Name Role Phone Unavailable Primary Care Provider Unavailabl e Encounter Details Date Type Department Care Team (Late st Contact Info) Description 10/29/2016 Conversion Encounter [place] [facility] - [address] [address] Social History Tobacco Use Types Packs/Day Years Used Date Smoking Tobacco: Never Comments:Never smoker Comments Unknown Sex and Gender Information Value Date Recorded Sex Assigned at Not on file Legal Sex Female 5:22 PM EDT Gender Identity Not on file Sexual Orientation Not on file documented as of this encounter Plan of Treatment Not on file documented as of this encounter Visit Diagnoses Not on filedocumented in this encounter
--- OUTSIDE RECORDS SUMMARY | 2024-12-14 10:17 | XMS_ITS | Encounter Summary ---
Author Organization [facility] Address [address] [place] [phone] Phone Care Team Providers Care Voting Machine Repairer Name Role Phone Unavailable Primary Care Provider Unavailabl e Encounter Details Date Type Department Care Team (Late st Contact Info) Description 08/10/2013 Documentation [facility] [place] [address] Family Medicine, Physician [address] [place] [phone] Social History Tobacco Use Types Packs/Day Years [...]
== END 2024-12-14 11:57 | disposition home or self-care (01) ==
PROVIDERS: Visit Provider Physician Assistant Medical
DX: J06.9 Acute upper respiratory infection, unspecified (principal); R11.2 Nausea with vomiting, unspecified; R19.7 Diarrhea, unspecified

== ENCOUNTER 2024-12-15 19:52 | Emergency (ER) | payer OTHER, SELFPAY ==
[2024-12-15 20:20] VITALS: BP 127/72; PULSE 92; RESP 18; TEMP 36.7; O2SAT 98; BMI 39.1
[2024-12-15 20:41] LABS: MANUAL DIFF FLAG NO
[2024-12-15 20:58] LABS: Alanine Aminotransferase 46 U/L (0-31); Albumin Level 4.3 g/dL (3.5-5.0); Alkaline Phosphatase 73 U/L (39-117); Anion Gap 10 (12-20); Aspartate Amino Transferase 34 U/L (5-31); Blood Urea Nitrogen 13 mg/dL (9-16); Calcium 9.1 mg/dL (8.4-10.2); Carbon Dioxide 26 mmol/L (22-29); Chloride 106 mmol/L (96-108); Creatinine Clr Calc Pharmacy 131.4; Estimated Glomerular Filt Rate > 60; Potassium 4.2 mmol/L (3.3-5.1); Sodium 138 mmol/L (135-145); Total Protein 8.2 g/dL (6.5-8.0)
[2024-12-15 21:02] LABS: COVID-19 Test Negative (Negative); IDNOW Serial# 58CA691E
[2024-12-15 21:03] LABS: IDNOW Serial# 55D5AD1C; Influenza B2 Negative (Negative)
[2024-12-15 21:06] LABS: Hematocrit 36.4 % (37.0-47.0); Hemoglobin 12.2 g/dl (12.0-16.0); Imm Gran Abs Auto 0.08 X10*3/uL (0.00-0.03); Imm Gran Pct Auto 0.8 % (0.0-0.4); Lymphocytes Absolute Auto 3.1 X10*3/uL (1.2-4.9); Mean Corpuscular HGB Conc 33.5 g/dl (31.0-35.0); Mean Corpuscular Hemoglobin 26.8 pg (27.0-33.0); Mean Corpuscular Volume 79.8 fL (80.0-98.0); NRBC Abs Auto 0.000 X10*3/uL (0.0-0.012); NRBC Pct Auto 0.0 /100WBC (0.0-0.2); Platelet Count 190 X10*3/uL (160-400); Red Blood Count 4.56 X10*6/uL (4.20-5.50); White Blood Count 10.6 X10*3/uL (4.8-10.8)
--- OUTSIDE RECORDS SUMMARY | 2024-12-15 21:20 | XMS_ITS | Clinical Summary ---
Author Organization [facility] Address [address] [place] [address] Phone Care Team Providers Care Personnel Officer Name Role Phone Unavailable Primary Care Provider [...] dislocation of hip, Family history of Sudden /[place] under age 55, No family history of Cancer, No family history of Obesity, No family history of Deafness, Family history of Diabetes mellitus, No family history of *CVA/Stroke, No family history of Seizure disorder, No family history of Migraines, No family history of *Sudden /[place] under 55, No family history of *Heart [...] complete this topic Procedures * Due to [place] [employer] law, this organization might not be sharing sensitive test results. Procedure Name Priority Date/Time Associated Diagnosis Comments CHLAMYDIA AND GONORRHEA, AMPLIFIED Routine 04/23/2017 11:02 AM EST Surveillance of contraceptive injection from Last 3 Months or Most Recently Relevant to Health Maintenance Results * Due to [place] [employer] law, this organization might not be sharing sensitive test results. * Chlamydia and Gonorrhoea, Amplified (04/23/2017 11:02 AM EST) Chlamydia Trachomatis, DNA Probe NEGATIVE (NEG) [facility] Comment: No Chlamydia Trachomatis RNA detected in this patient's sample (REFERENCE RANGE/NORMAL VALUE: NOT DETECTED) Note: This test uses resident care aid- mediated amplification method to detect rRNA from C. Trachomatis URINE GC AMP PROBE NEGATIVE (NEG) [facility] Comment: No Neisseria Gonorrhoeae RNA detected in this patient's sample (REFERENCE RANGE/NORMAL VALUE: NOT DETECTED) NOTE: This test uses resident care aid-mediated amplification method to detect rRNA from N.Gonorrhoeae. [...] without risk of sexual abuse. Consult the [facility] if needed. Contact phone number . Therapeutic failure or success cannot be determined with the Aptima Combo2 assay since nucleic acid may persist following appropriate antimicrobial therapy. The Centers for Disease Control and Prevention (CDC) recommends confirmatory retesting using culture or a different nucleic acid amplification test when positive results occur, if indicated. Testing performed or reported by [facility], a Service of [facility], [address] [place] [address] CLIA [id number] Jeremy Sun MD, PhD, Property Analyst Urine 04/23/2017 11:0 2 AM EST 04/23/2017 10:06 PM EST us Quin Zamora NP LAB MICROBIOLOGY - GENERAL ORDER JENNIFER Final Result [facility] from Last 3 Months or Most Recently Relevant to Health Maintenance
--- OUTSIDE RECORDS SUMMARY | 2024-12-15 21:20 | XMS_ITS | Encounter Summary ---
Author Organization [facility] Address [address] [place] [address] Phone Care Team Providers Care Woodwind Reeds Cutter Name Role Phone Unavailable Primary Care Provider Unavailabl e Encounter Details Date Type Department Care Team (Late st Contact Info) Description 10/29/2016 Conversion Encounter [place] [facility] - [address] [address] Social History Tobacco Use Types Packs/Day Years [...]
--- OUTSIDE RECORDS SUMMARY | 2024-12-15 21:20 | XMS_ITS | Encounter Summary ---
Author Organization [facility] Address [address] [place] [address] Phone Care Team Providers Care Barrel Rifler Name Role Phone Unavailable Primary Care Provider Unavailabl e Encounter Details Date Type Department Care Team (Late st Contact Info) Description 08/14/2013 Documentation [facility] [place] Family Medicine [facility] [place] [address] Family Medicine, Physician [address] [place] [address] [phone] Social History Tobacco Use Types Packs/Day Years [...]
--- OUTSIDE RECORDS SUMMARY | 2024-12-15 21:20 | XMS_ITS | Encounter Summary ---
Author Organization [facility] Address [address] [place] [address] Phone Care Team Providers Care Hris Analyst Name Role Phone Unavailable Primary Care Provider Unavailabl e Encounter Details Date Type Department Care Team (Late st Contact Info) Description 08/10/2013 Documentation [facility] [place] Family [place] [facility] [place] [address] Family Medicine, Physician [address] [place] [address] [phone] Social History Tobacco Use Types Packs/Day Years [...]
[2024-12-15] MEDS: Lactated Ringers 1,000 ML 999 ML IV (21:56)
[2024-12-15 23:01] VITALS: BP 127/72; PULSE 92; RESP 18; TEMP 36.7; O2SAT 98
[2024-12-15 23:18] LABS: Appearance Urine Clear; Glucose Urine UA Negative (Negative); PH 5.5 (5.0-9.0); Specific Gravity - Urine >= 1.030 (1.005-1.025)
--- NOTE | 2024-12-16 00:18 | ED.GENADULT ---
HPI - General Adult General Chief complaint: General Medical Stated complaint: N/D swollen lymph nodes, fatigue, headache Time Seen by Provider: 12/15/24 21:02 Source: patient Mode of arrival: ambulatory Limitations: no limitations History of Present Illness ED Provider: Dr. Neha Kirkland HPI narrative: patient comes to the emergency room complaining of nausea, no vomiting, watery diarrhea, abdominal cramping just before having diarrhea. Patient states that she is also experiencing headaches. All symptoms started 10 days ago. Patient went to a walk-in clinic yesterday, tested for viral infection and she tested negative for COVID and influenza. Patient denies blood in the stool. Related Data Previous Rx's ?Medication ?Instructions ?Recorded ondansetron 4 mg disintegrating 4 mg PO Q8H PRN nausea and 12/14/24 tablet vomiting #10 tabs diphenoxylate-atropine 2.5 1 tab PO BID PRN diarrhea #8 tabs 12/16/24 mg-0.025 mg tablet (Lomotil) prochlorperazine maleate 5 mg 5 mg PO TID PRN anxiety #14 tabs 12/16/24 tablet (Compazine) Allergies Allergy/AdvReac Type Severity Reaction Status Date / Time No Known Allergies Allergy Verified 12/15/24 20:26 Review of Systems Review of Systems: Constitutional : No Weight loss, No Fever, No Chills, No Night Sweats, No Fatigue, No Malaise ENT/Mouth : No Hearing loss, No Ear Pain, No Nasal Congestion, No Sinus Pain, No Hoarseness, No sore throat, No Rhinorrhea, No Swallowing Difficulty Eyes: No Eye Pain, No Swelling, No Redness, No Foreign Body, No Discharge, No Vision Changes Cardiovascular : No Chest Pain, No SOB, No Dyspnea on Exertion, No Orthopnea, No Edema, No Palpitations Respiratory : No Cough, No Sputum, No Wheezing, No Smoke Exposure, No Dyspnea Gastrointestinal : Complaining of nausea vomiting and diarrhea, complaining of abdominal cramping just before having diarrhea. No Hematochezia, No Melena Genitourinary : no irregular bleeding, No Dysuria, No Urinary Frequency, No Hematuria, No Urinary Incontinence, No Urgency, No Flank Pain, No Urinary Flow Changes, No Hesitancy Musculoskeletal : No joint pain, No Myalgias, No Joint Swelling Skin : No Skin Lesions, No rash Neuro : No Weakness, No Numbness, No Paresthesias, No Loss of Consciousness, No Dizziness, Complaining of Headache Psych : No Anxiety/Panic, No Depression, No SI/HI/AH/VH, No Social Issues, Heme/Lymph: No Bruising, No Bleeding,No Lymphadenopathy Endocrine : No Polyuria, No Polydipsia, No Temperature Intolerance [facility] Past Medical History Medical History Asthma Social History Social History Alcohol intake: never Advance Directives: No Advance Directives Information Provided: No Physical Exam ED Exam Exam: Appearance: Alert. Oriented X3. No acute distress. Eyes: Pupils equal, round and reactive to light. ENT: Pharynx normal. Neck: Normal inspection. Neck supple. No lymph nodes noted. No crepitus CVS: Normal heart rate and rhythm. Pulses normal. Normal S1 and S2 Respiratory: No respiratory distress. Breath sounds normal. No Wheezing. No rales Abdomen: Soft and nontender. no rebound or guarding,No rigidity. No distention. Skin: Skin warm and dry. Normal skin color. Normal skin turgor. Extremities: No lower extremity edema. No Lacerations. No Rash Neuro: Oriented X 3. No motor deficit. No sensory deficit. Moving all extremities. No slurred speech. CN 2 through 12 grossly intact Psych: calm, cooperative, normal affect Vital Signs: Vital Signs - 24 hr 12/15/24 20:20 12/15/24 23:01 Temperature 98.1 F 98.1 F Pulse Rate 92 92 Respiratory Rate 18 18 Blood Pressure 127/72 127/72 Pulse Oximetry 98 98 Oxygen Delivery Method Room Air Room Air BMI result Body Mass Index 39.1 Course Course Course Narrative: patient comes in complaining of 10 days of nausea, no vomiting, watery diarrhea with anything that she eats. Abdominal cramping just before having diarrheal bowel movements. All of patient's labs and imaging pending patient receiving IV fluids, Reglan, ketorolac and Lomotil Medications Administered Discontinued Medications Generic Name Dose Route Start Last Admin Trade Name Freq PRN Reason Stop Dose Admin Diphenoxylate HCl/Atropine 1 tab 12/15/24 21:27 12/15/24 21:45 Diphenoxylate/Atrop 2.5/0.025 Tablet PO 12/15/24 21:28 1 tab ONCE ONE Administration Lactated Ringer's 1,000 mls @ 999 mls/hr 12/15/24 21:30 12/15/24 21:56 Lr IV 12/15/24 23:30 999 mls/hr .Q1H1M TANNA Administration Ketorolac Tromethamine 30 mg 12/15/24 21:27 12/15/24 21:55 Ketorolac Tromethamine 30 Mg/Ml Vial IVPUSH 12/15/24 21:28 30 mg ONCE ONE Administration Metoclopramide HCl 10 mg 12/15/24 21:27 12/15/24 21:55 Metoclopramide Hcl 10 Mg/2 Ml Vial IVPUSH 12/15/24 21:28 10 mg ONCE ONE Administration Medical Decision Making Medical Decision Making [facility] Narrative: my interpretation of labs, no significant abnormality in patient's hematology and chemistry urinalysis negative for UTI, hCG negative serology negative for COVID and influenza a stool sample was ordered. However, patient was not able to provide any stool sample, since she did not have the urge to go to the bathroom after the above-mentioned medication, patient no longer having abdominal pain / cramping, diarrhea nausea or headache patient likely has a viral syndrome. Differential Diagnosis Differential Diagnoses: The differential diagnosis associated with the presentation includes ( Gastritis, gastroenteritis, viral illness) Admission/Observation Consideration of admission/observation: Escalation of care including admission/observation considered ( given patient's length of symptoms, admission/ observation was considered) Lab Data [facility] Lab Attestation statement: I reviewed the patient's lab results. 12/15/24 20:37 12/15/24 20:37 Labs: Lab Results 12/15/24 12/15/24 Range/Units 20:37 23:06 WBC 10.6 (4.8-10.8) X10*3/uL RBC 4.56 (4.20-5.50) X10*6/uL Hgb 12.2 (12.0-16.0) g/dl Hct 36.4 L (37.0-47.0) % MCV 79.8 L (80.0-98.0) fL MCH 26.8 L (27.0-33.0) pg MCHC 33.5 (31.0-35.0) g/dl RDW 13.9 (11.0-16.0) % Plt Count 190 D (160-400) X10*3/uL MPV 9.9 (9.4-12.3) fL Immature Gran % (Auto) 0.8 H (0.0-0.4) % Neut % (Auto) 51.8 (45-73) % Lymph % (Auto) 29.3 (20-40) % [place] % (Auto) 4.7 (2-11) % Eos % (Auto) 13.0 H (0-4) % Baso % (Auto) 0.4 (0-2) % Lymph # (Auto) 3.1 (1.2-4.9) X10*3/uL [place] # (Auto) 0.5 (0.1-1.2) X10*3/uL Eos # (Auto) 1.4 H (0.0-0.4) X10*3/uL Baso # (Auto) 0.0 (0.0-0.2) X10*3/uL Abs Immat Gran (auto) 0.08 H (0.00-0.03) X10*3/uL Absolute Neuts (auto) 5.5 (2.0-8.3) x10*3/uL Absolute Nucleated RBC 0.000 (0.0-0.012) X10*3/uL Nucleated RBC % (auto) 0.0 (0.0-0.2) /100WBC Sodium 138 (135-145) mmol/L Potassium 4.2 (3.3-5.1) mmol/L Chloride 106 (96-108) mmol/L Carbon Dioxide 26 (22-29) mmol/L Anion Gap 10 L (12-20) BUN 13 (9-16) mg/dL Creatinine 0.62 (0.5-1.4) mg/dL Estim Creat Clear Calc 131.4 Estimated GFR > 60 Random Glucose 86 (60-115) mg/dL Calcium 9.1 (8.4-10.2) mg/dL Total Bilirubin 0.2 (0.0-1.0) mg/dL AST 34 H (5-31) U/L ALT 46 H (0-31) U/L Alkaline Phosphatase 73 (39-117) U/L Total Protein 8.2 H (6.5-8.0) g/dL Albumin 4.3 (3.5-5.0) g/dL Beta HCG, Quant < 2 mIU/mL Urine Color Yellow Urine Appearance Clear Urine pH 5.5 (5.0-9.0) Ur Specific [place] >= 1.030 H (1.005-1.025) Urine Protein Negative (Neg-Trace) mg/dL Urine Glucose (UA) Negative (Negative) mg/dL Urine Ketones Trace (Negative) mg/dL Urine Blood Negative (Negative) Urine Nitrite Negative (Negative) Ur Leukocyte Esterase Negative (Negative) COVID-19 (RED) Negative (Negative) COVID-19 Clin Com See Note Influenza Type A (PHILIPPE) Negative (Negative) Influenza Type B (PHILIPPE) Negative (Negative) Influenza A & B Note See Note Tests considered The following testing was considered but not selected: I considered ordering a CT scan of the abdomen /pelvis. However, on physical exam patient did not have any pain. And labs look reassuring Critical Care Time Critical Care Time Critical Care Time: Yes Total Critical Care Time: 35 Attestation: I have personally provided critical care time. Time includes review of lab data, radiology results, discussion with consultants, and monitoring for potential decompensation. Intervention performed as documented. Discharge Plan Discharge Clinical Impression: Nausea vomiting and diarrhea Patient Disposition: Home, Self-Care Instructions: Acute Nausea and Vomiting (ED), Acute Diarrhea (ED) Additional Instructions: Please follow-up with your primary care physician tomorrow. If you have any worsening or new symptoms, please return to the emergency room or call 911 Prescriptions: New diphenoxylate-atropine [Lomotil] 2.5-0.025 mg tablet 1 tab PO BID PRN (Reason: diarrhea) Qty: 8 0RF prochlorperazine maleate [Compazine] 5 mg tablet 5 mg PO TID PRN (Reason: anxiety) Qty: 14 0RF No Action ondansetron 4 mg tablet,disintegrating 4 mg PO Q8H PRN (Reason: nausea and vomiting) Qty: 10 0RF Stand Alone Forms: Work/School Release Print Language: Salvadorean
[2024-12-16 01:11] VITALS: BP 110/72; PULSE 75; RESP 18; TEMP 36.6; O2SAT 97
[2024-12-16 01:14] VITALS: BP 110/72; PULSE 75; RESP 18; TEMP 36.6; O2SAT 97
== END 2024-12-16 01:15 | disposition home or self-care (01) ==
PROVIDERS: Emergency Provider Emergency Medicine; PCP Internal Medicine
DX: R11.2 Nausea with vomiting, unspecified (principal); R19.7 Diarrhea, unspecified; R51.9 Headache, unspecified; R10.22 Pelvic and perineal pain left side; Z11.52 Encounter for screening for COVID-19; Z79.899 Other long term (current) drug therapy
CPT/HCPCS: 36415; 80053; 81003; 84702; 85025; 87502; 87635; 96361; 96374; 96375; 99284; J1885; J2765; J7120

== ENCOUNTER 2025-01-28 09:57 | Emergency (ER) | payer OTHER, SELFPAY ==
[2025-01-28 10:02] VITALS: BP 160/87; PULSE 102; RESP 16; TEMP 36.2; O2SAT 98; BMI 38.7
--- NOTE | 2025-01-28 10:45 | ED.GENADULT ---
HPI - General Adult General Chief complaint: General Medical Stated complaint: Skin Rash Time Seen by Provider: 01/28/25 10:45 Source: patient, RN notes reviewed and old records reviewed Mode of arrival: ambulatory Limitations: no limitations History of Present Illness ED Provider: [facility] narrative: Patient is a 30-year-old female presenting to the emergency department with pruritic rash which began to her lower legs yesterday and has since spread to her abdomen, arms, chest. She reports that she was outdoors at a [employer] and the dog that was there rubbed against her legs. She is unsure if this is how the rash began. Notes that she did not eat or drink anything at the libertarian. Denies any fever or chills, body aches. Did take Kecia prior to arrival. Denies any swelling to lips, tongue, difficulty swallowing or difficulty breathing. MD complaint: rash Onset (ago): hour(s) Related Data Previous Rx's ?Medication ?Instructions ?Recorded ondansetron 4 mg disintegrating 4 mg PO Q8H PRN nausea and 12/14/24 tablet vomiting #10 tabs diphenoxylate-atropine 2.5 1 tab PO BID PRN diarrhea #8 tabs 12/16/24 mg-0.025 mg tablet (Lomotil) prochlorperazine maleate 5 mg 5 mg PO TID PRN anxiety #14 tabs 12/16/24 tablet (Compazine) prednisone 20 mg tablet See Rx Instructions .Route 01/28/25 .COMPLEX #18 tabs Allergies Allergy/AdvReac Type Severity Reaction Status Date / Time No Known Allergies Allergy Verified 01/28/25 10:05 Review of Systems Review of Systems: as per hpi Yes all other systems are reviewed and are negative Constitutional: Constitutional: Reports as per HPI [facility] Past Medical History Medical History Asthma Social History Social History Alcohol intake: never Do you have a plan to hurt others: No Plan Physical Exam ED Vital Signs: Vital Signs - 24 hr 01/28/25 10:02 Temperature 97.2 F Pulse Rate 102 H Respiratory Rate 16 Blood Pressure 160/87 H Pulse Oximetry 98 Oxygen Delivery Method Room Air BMI result Body Mass Index 38.7 Vital signs have been reviewed and appear to be correct. Blood pressure elevated. Heart rate normal. Respiratory rate normal. Temperature normal. Oxygen saturation normal. Const General: cooperative, healthy appearing and no acute distress Orientation/consciousness: oriented to person, oriented to place, oriented to time and patient oriented x3 Limitations: no limitations [facility] Head: Yes normocephalic and Yes atraumatic Ears: external ears normal General nose exam: Normal external nose present Face and sinus: Yes face symmetric Mouth: Normal oral and palatal mucosa present, lip normal, tongue normal, oropharynx normal, moist mucous membranes, no audible dysphonia, no drooling and no trismus Throat: Yes posterior oropharynx normal, Yes uvula midline and No uvular edema Eyes Pupils: Equal, round and reactive pupils present Neck Neck: Yes normal visual inspection and Yes supple Resp Effort & Inspection: normal respiratory effort and able to speak in complete sentences Auscultation: clear to auscultation bilaterally Cardio Rate: regular rate Rhythm: regular rhythm Heart sounds: S1 normal heart sound present and S2 normal heart sound present GI Palpation (GI): Soft to palpation and nontender Auscultation: normoactive bowel sounds General: Yes no CVA tenderness Back/Spine/Pelvis Back: no CVA tenderness Skin Other: erythematous macular rash to all extremities and trunk; no rash to palms or soles General skin exam: elasticity normal and turgor normal Neuro General: oriented to person, oriented to place, oriented to time, patient oriented x3, moves all extremities, no focal motor deficits and CN's II-XI intact bilaterally Cranial nerves: Yes Equal, round and reactive pupils present Cognition (Neuro): normal cognition Extrem General: Yes full ROM, Yes no pedal edema and Yes no calf tenderness Psych Mental Status: mental status grossly normal Affect: normal affect Thought process: Normal thought process present Medical Decision Making Medical Decision Making MDM Narrative: Patient is a 30-year-old female presenting to the emergency department with pruritic rash which began to her lower legs yesterday and has since spread to her abdomen, arms, chest. On exam patient is awake, A+Ox3, VS WNL, afebrile, normal neurological exam without focal deficits, physical exam findings as above. Given reported symptoms and physical exam findings, initial differential includes but is not limited to contact dermatitis, viral urticaria. Do not suspect TEN/SJS, DRESS, TTP/DIC, necrotizing fasciitis, meningococcemia, SSSS, TSS, anaphylaxis. Discussed management of rash with the patient including antihistamine, advised she can add famotidine for additional antihistamine coverage. will send prescription for prednisone taper.advised avoiding extremes in temperatures when bathing. Discussed can use a thick unscented lotion. Discussed avoiding scratching at the areas as this can cause secondary infection. Return precautions discussed. Follow up with Dermatology for ongoing symptoms. Patient verbalized understanding of and agreement with plan. Differential Diagnosis Differential Diagnoses: The differential diagnosis associated with the presentation includes As per [facility] Admission/Observation Consideration of admission/observation: Escalation of care including admission/observation considered Patient would have been admitted to the hospital and transferred to appropriate facility had their clinical presentation warranted hospital admission. External Record Review External record reviewed: Inpatient record, Office record and Outpatient record Prescription Management I considered prescription management with: Other Discharge Plan Discharge Clinical Impression: Rash and nonspecific skin eruption Patient Disposition: Home, Self-Care Instructions: Contact Dermatitis (DC), Acute Rash (ED) Additional Instructions: You were evaluated in the emergency department today for a rash. Your evaluation did not reveal evidence of conditions requiring emergent medical treatment. You are being prescribed a tapering dose of a steroid called prednisone to decrease inflammation. We also recommend that you take a daily antihistamine such as loratadine (Claritin) or cetirizine (Zyrtec). You can also add over the counter famotidine (Pepcid) which is a different type of antihistamine. You can apply a thick unscented lotion to the affected areas such as Eucerine or Vanicream several times daily. Avoid extreme hot or cold temperatures when bathing. Follow up with your primary care provider this week. If your symptoms do not improve, follow up with a business administration professor. Return to the emergency department if you develop difficulty breathing or shortness of breath, swelling to lips, tongue, fever, rash inside your mouth or to your palms/soles or any other concerning symptoms. Prescriptions: New prednisone 20 mg tablet See Rx Instructions .ROUTE .COMPLEX Qty: 18 0RF Rx Instructions: 60mg (3 tabs) x 3 days, then 40mg (2 tabs) x 3 days, then 20mg (1 tab) x 3 days No Action diphenoxylate-atropine [Lomotil] 2.5-0.025 mg tablet 1 tab PO BID PRN (Reason: diarrhea) Qty: 8 0RF prochlorperazine maleate [Compazine] 5 mg tablet 5 mg PO TID PRN (Reason: anxiety) Qty: 14 0RF ondansetron 4 mg tablet,disintegrating 4 mg PO Q8H PRN (Reason: nausea and vomiting) Qty: 10 0RF Referrals: [facility] [Provider Group] Print Language: Italian
[2025-01-28 11:12] VITALS: BP 160/87; PULSE 102; RESP 16; TEMP 36.2; O2SAT 98
== END 2025-01-28 11:13 | disposition home or self-care (01) ==
PROVIDERS: Emergency Provider Emergency Medicine; PCP Internal Medicine
DX: R21 Rash and other nonspecific skin eruption (principal); J45.909 Unspecified asthma, uncomplicated
CPT/HCPCS: 99282; 99283